=== PATIENT | male | born 1965 | race Caucasian/White ===

== ENCOUNTER 2021-10-20 09:56 | Observation (INO) ==
[2021-10-20 10:55] LABS: Basophils # (auto) 0.02 K/uL (0-0.2); Basophils % (auto) 0.4 %; Eosinophils # (auto) 0.09 K/uL (0-0.5); Eosinophils % (auto) 1.9 %; Hematocrit (blood only) 45.6 % (42-52); Hemoglobin 15.2 g/dL (14.0-18.0); Immature Granulocytes # (auto) 0.01 K/uL (0.00-0.02); Immature Granulocytes % (auto) 0.2 %; Lymphocytes # (auto) 1.39 K/uL (1.2-3.4); Lymphocytes % (auto) 29.5 %; Mean Corpuscular Hgb Conc 33.3 g/dL (32-36); Mean Corpuscular Volume 89.9 fL (80-100); Mean Platelet Volume 10.5 fL (7.4-10.4); Monocytes # (auto) 0.36 K/uL (0.11-0.59); Monocytes % (auto) 7.6 %; Neutrophils # (auto) 2.84 K/uL (1.4-6.5); Neutrophils % (auto) 60.4 %; Platelet Count 194 K/uL (130-400); RDW Standard Deviation 45.9 fL (36.4-46.3); Red Blood Count 5.07 M/uL (4.7-6.1); White Blood Count 4.71 K/uL (4.8-10.8)
--- NOTE | 2021-10-20 11:02 | Emergency Department Note ---
Impression & Plan Syncope, Atrial fibrillation, Hypertension ED Provider Note NAME: DAIJA CASPER AGE: 56 SEX: M : 1965 ARRIVES VIA: Walk-In INFORMANT: Patient ED PROVIDER(S): Seymour Watt DO CHIEF COMPLAINT: syncope HPI: Patient is a 56-year-old male who presents the ER for passing out. He was sitting at the dinner table last night and his vision went blurry. The next thing he knew he was waking up and he was slightly confused for several seconds then knew where he was at. The notes that he passed out sitting up. He had some mild twitching of the head but nowhere else. When he woke up he was a little confused for several seconds but then was appropriate. He did not bite his tongue. Did not lose control of his bowel or bladder. Recently over the past 2 months he has been in A. fib has been following with [email or web address] cardiology. He has been taking his Eliquis. He had no chest pain or shortness of breath preceding the incident or following the incident with exception of chronic shortness of breath for the past 2 months since being in A. fib which is unchanged. ROS: See above HPI for pertinent positives & negatives. A total of 10 systems reviewed and were otherwise negative. PAST MEDICAL HISTORY:See Below PAST SURGICAL HISTORY:See Below FAMILY HISTORY:See Below SOCIAL HISTORY:See Below HOME MEDICATIONS:See Below ALLERGIES:See Below VITALS:See Below PHYSICAL EXAMINATION: GENERAL: Sitting up in bed, alert, well appearing, well nourished, no distress, non-toxic EYE EXAM: normal conjunctiva. PERRL and EOM's intact. OROPHARYNX: no exudate, no erythema, lips, buccal mucosa, and tongue normal and mucous membranes are moist NECK: supple, no nuchal rigidity, no adenopathy, non-tender LUNGS: Clear to auscultation. Normal chest wall mechanics HEART: no murmurs, S1 normal and S2 normal ABDOMEN: abdomen soft, non-tender, normo-active bowel sounds, no masses, no rebound or guarding. BACK: Back is symmetrical on inspection and there is no deformity, no midline tenderness, no CVA tenderness. SKIN: no rashes and no bruising UPPER EXTREMITIES: upper extremities are grossly normal. LOWER EXTREMITIES: No pitting edema. NEURO EXAM: Normal sensorium, cranial nerves II-XII intact, normal speech, no weakness of arms, no weakness of legs. No drift. Finger to nose intact. Gross sensation intact. MEDICAL DECISION MAKING: Patient is a 56-year-old male who presents ER for syncopal episode. IV was established blood work was obtained. Labs show mild leukopenia 4.7 thousand. No significant anemia. INR was unremarkable. BMP with LFTs bilirubin was unremarkable. Troponin was negative with symptoms that occurred greater than 8 hours ago not indicative of ACS. COVID was negative. CT head was negative. Chest x-ray was unremarkable. Patient was monitored closely while in the ER. He was updated bedside. He was discussed with hospitalist for further evaluation. Do not feel this consistent with a seizure. Concern for possible cardiac etiology. Triage Nursing notes reviewed. Limited review of prior medical records performed Vital Signs: reviewed and remarkable for no significant abnormalities Differential diagnosis: Differential diagnosis includes etiologies such as vasovagal event, infection, hypoglycemia, electrolyte abnormalities, cardiac sources, intracerebral event, toxicologic, neurologic, as well as others were entertained. ER treatment provided: See below Diagnostics interpreted by me: ECG: A. fib rate of 67 Normal axis No PVCs QTC 409 Cardiac Monitoring: An order was placed for continuous cardiac monitoring. The monitor shows a rate of 70 with sinus rhythm. Laboratory studies: As stated above and show below. Imaging studies: CT head was negative Portable AP upright 1 view of the chest is unremarkable Consultation(s): Discussed the hospitalist for further evaluation Procedures: none Critical Care: None Past Med/Surg History Social History Smoking Status: Never smoker Hx Alcohol Use: No Hx Substance Use: No Preferred Language: Turkish Communication Ability: Effective [employer] Required: No Beliefs That Will Affect Care: None Current Living Situation: Spouse Other Information That Helps Us Care for You: No Feels Safe at Home: Yes Safety Concerns: Feels Safe At This Time Assistive Devices: Glasses Allergies Allergies Allergy/AdvReac Type Severity Reaction Status Date / Time No Known Allergies Allergy Unverified 10/20/21 11:16 Home Meds Home Medications Medication Instructions Recorded Confirmed amlodipine 10 mg tablet 10 mg PO DAILY 10/20/21 10/20/21 apixaban 5 mg tablet (Eliquis) 5 mg PO BID 10/20/21 10/20/21 metoprolol tartrate 25 mg tablet 25 mg PO BID 10/20/21 10/20/21 Results & Data (ED) Vital Signs Vital Signs - 24 hr 10/20/21 10:00 10/20/21 10:18 10/20/21 10:25 Temperature 36.3 C L Temperature Source Temporal Artery Scan Pulse Rate 95 H 85 Pulse Rate [Right Finger] 84 Pulse Rhythm Irregular Pulse Rhythm [Right Finger] Irregular Pulse Strength [Right Finger] Normal Respiratory Rate 18 14 15 Respiratory Effort / Characteristics Non-Labored Spontaneous Respiratory Depth Normal Blood Pressure 155/94 H Blood Pressure Mean 114 Pulse Oximetry 99 98 98 Oxygen Delivery Method Room Air Room Air Room Air Sepsis Recent Fever Within 48 Hours No Sepsis New/Unexplained Change in Mental Status No Sepsis Action Taken by Nursing No Action Required 10/20/21 12:00 10/20/21 14:00 Temperature Temperature Source Pulse Rate Pulse Rate [Right Finger] 75 89 Pulse Rhythm Pulse Rhythm [Right Finger] Regular Irregular Pulse Strength [Right Finger] Normal Normal Respiratory Rate 18 17 Respiratory Effort / Characteristics Non-Labored Spontaneous Non-Labored Spontaneous Respiratory Depth Normal Normal Blood Pressure Blood Pressure Mean Pulse Oximetry 98 94 Oxygen Delivery Method Room Air Room Air Sepsis Recent Fever Within 48 Hours Sepsis New/Unexplained Change in Mental Status Sepsis Action Taken by Nursing Laboratory Data Result diagrams: 10/20/21 10:29 10/20/21 10:29 Lab Results 10/20/21 10/20/21 10/20/21 Range/Units 10:29 10:29 10:29 WBC 4.71 L (4.8-10.8) K/uL RBC 5.07 (4.7-6.1) M/uL Hgb 15.2 (14.0-18.0) g/dL Hct 45.6 (42-52) % MCV 89.9 (80-100) fL MCH 30.0 (25-34) pg MCHC 33.3 (32-36) g/dL RDW Std Deviation 45.9 (36.4-46.3) fL RDW Coeff of Jacky 14.0 (11.5-14.5) % Plt Count 194 (130-400) K/uL MPV 10.5 H (7.4-10.4) fL Immature Gran % (Auto) 0.2 % Neut % (Auto) 60.4 % Lymph % (Auto) 29.5 % Avery % (Auto) 7.6 % Eos % (Auto) 1.9 % Baso % (Auto) 0.4 % Neut # (Auto) 2.84 (1.4-6.5) K/uL Lymph # (Auto) 1.39 (1.2-3.4) K/uL Avery # (Auto) 0.36 (0.11-0.59) K/uL Eos # (Auto) 0.09 (0-0.5) K/uL Baso # (Auto) 0.02 (0-0.2) K/uL Immature Gran # (Auto) 0.01 (0.00-0.02) K/uL PT 10.6 (9.0-12.0) Seconds INR 1.0 (0.9-1.1) APTT 28.8 (21.0-31.0) Seconds PTT Ratio 1.0 Sodium 139 (136-145) mmol/L Potassium 4.4 (3.5-5.1) mmol/L Chloride 106 (98-107) mmol/L Carbon Dioxide 27 (21-32) mmol/L Anion Gap 6 (3-11) BUN 18 (6-23) mg/dl Creatinine 0.79 (0.6-1.4) mg/dl Est Cr Clr Drug Dosing 143.2 ml/min Est GFR ( Amer) 114.7 ml/min Est GFR (Non-Af Amer) 99.0 ml/min BUN/Creatinine Ratio 22.8 H (10-20) Glucose 98 (70-99(Fasting)) mg/dl Calcium 9.8 (8.5-10.1) mg/dl Total Bilirubin 0.6 (0.2-1.0) mg/dl AST 20 (13-39) U/L ALT 28 (7-52) U/L Alkaline Phosphatase 67 (34-104) U/L Troponin I High Sens 3.2 (0-20) pg/ml Total Protein 7.5 (6.0-8.3) gm/dl Albumin 4.6 (3.4-5.0) gm/dl Globulin 2.9 (2.5-4.0) gm/dl Albumin/Globulin Ratio 1.6 (0.9-2) SARS-CoV-2, RNA, NAAT (NEGATIVE) 10/20/21 Range/Units 13:00 WBC (4.8-10.8) K/uL RBC (4.7-6.1) M/uL Hgb (14.0-18.0) g/dL Hct (42-52) % MCV (80-100) fL MCH (25-34) pg MCHC (32-36) g/dL RDW Std Deviation (36.4-46.3) fL RDW Coeff of Jacky (11.5-14.5) % Plt Count (130-400) K/uL MPV (7.4-10.4) fL Immature Gran % (Auto) % Neut % (Auto) % Lymph % (Auto) % Avery % (Auto) % Eos % (Auto) % Baso % (Auto) % Neut # (Auto) (1.4-6.5) K/uL Lymph # (Auto) (1.2-3.4) K/uL Avery # (Auto) (0.11-0.59) K/uL Eos # (Auto) (0-0.5) K/uL Baso # (Auto) (0-0.2) K/uL Immature Gran # (Auto) (0.00-0.02) K/uL PT (9.0-12.0) Seconds INR (0.9-1.1) APTT (21.0-31.0) Seconds PTT Ratio Sodium (136-145) mmol/L Potassium (3.5-5.1) mmol/L Chloride (98-107) mmol/L Carbon Dioxide (21-32) mmol/L Anion Gap (3-11) BUN (6-23) mg/dl Creatinine (0.6-1.4) mg/dl Est Cr Clr Drug Dosing ml/min Est GFR ( Amer) ml/min Est GFR (Non-Af Amer) ml/min BUN/Creatinine Ratio (10-20) Glucose (70-99(Fasting)) mg/dl Calcium (8.5-10.1) mg/dl Total Bilirubin (0.2-1.0) mg/dl AST (13-39) U/L ALT (7-52) U/L Alkaline Phosphatase (34-104) U/L Troponin I High Sens (0-20) pg/ml Total Protein (6.0-8.3) gm/dl Albumin (3.4-5.0) gm/dl Globulin (2.5-4.0) gm/dl Albumin/Globulin Ratio (0.9-2) SARS-CoV-2, RNA, NAAT NEGATIVE (NEGATIVE) Imaging Data Radiologist's Impression: Chest X-Ray 10/20/21 10:18 XR chest 1V portable CLINICAL HISTORY: Chest Pain. COMPARISON STUDY: No previous studies for comparison. TECHNIQUE: 1 view of the chest FINDINGS: Single frontal view of the chest demonstrates the heart size to be accentuated by decreased inspiratory technique. There is a decreased inspiratory effort with elevation of the hemidiaphragms and crowding of the bronchovascular markings at the lung bases and centrally. The lungs are clear of alveolar opacities. There is no evidence for pleural effusion. There is no evidence for vascular congestion. There is no acute osseous pathology. IMPRESSION: 1. There is a decreased inspiratory effort with otherwise no acute chest disease. ACT 112: Negative or not required by law. Electronically signed by: Kam Chaidez M.D. 10/20/2021 11:[address] 10/20/21 13:21 CT head/brain wo con CLINICAL HISTORY: dizzy Technique: Contiguous axial CT images of the head were acquired from the base of the skull to the vertex without intravenous contrast administration. Images were viewed in brain, subdural and bone windows. Automated dose lowering techniques and/or adjustment according to patient size were utilized for this exam. Comparison: None available at the time of this dictation. Findings: The ventricles, basal cisterns, and cerebral sulci are normal. There is no acute intracranial hemorrhage or evidence of acute territorial infarction. Neither mass effect, shift of the midline structures, nor abnormal extra-axial fluid collections are shown. Imaged portions of the paranasal sinuses and mastoid air cells are clear. The orbits appear normal. There are no acute fractures of the calvaria or scalp swelling. Impression: No acute intracranial hemorrhage, no evidence of acute territorial infarction or other acute intracranial disease process. ACT 112: Negative or not required by law. Electronically signed by: Drayl aZmbrano M.D. 10/20/2021 2:05 PM Discharge Plan Visit Data Chief Complaint: Seizure Stated Complaint: SEIZURE LST NIGHT, CARDIAC SX ED Provider: Seymour Watt Discharge Problem: Syncope, Atrial fibrillation, Hypertension Discharge Instructions Interventions: ED Discharge Assessment Last Done: 10/20/21 16:03
[2021-10-20 11:05] LABS: Partial Thromboplastin Time 28.8 Seconds (21.0-31.0); Prothrombin Time 10.6 Seconds (9.0-12.0)
[2021-10-20 11:07] LABS: Albumin Globulin Ratio 1.6 (0.9-2); Albumin Level 4.6 gm/dl (3.4-5.0); BUN Creatinine Ratio 22.8 (10-20); Bilirubin,Total 0.6 mg/dl (0.2-1.0); Calcium 9.8 mg/dl (8.5-10.1); Creatinine Clr Calc Pharmacy 143.2 ml/min; Est GFR (African American) 114.7 ml/min; Globulin 2.9 gm/dl (2.5-4.0); Potassium 4.4 mmol/L (3.5-5.1); Total Protein 7.5 gm/dl (6.0-8.3)
[2021-10-20 11:11] LABS: Troponin I High Sensitivity 3.2 pg/ml (0-20)
--- NOTE | 2021-10-20 11:15 | XRay Report ---
XR chest 1V portable CLINICAL HISTORY: Chest Pain. COMPARISON STUDY: No previous studies for comparison. TECHNIQUE: 1 view of the chest FINDINGS: Single frontal view of the chest demonstrates the heart size to be accentuated by decreased inspirato ry technique. There is a decreased inspiratory effort with elevation of the hemidiaphragms and crowdi ng of the bronchovascular markings at the lung bases and centrally. The lungs are clear of alveolar o pacities. There is no evidence for pleural effusion. There is no evidence for vascular congestion. Th ere is no acute osseous pathology. IMPRESSION: 1. There is a decreased inspiratory effort with otherwise no acute chest disease. ACT 112: Negative or not required by law. Electronically signed by: Kam Chaidez M.D. 10/20/2021 11:14 AM
--- NOTE | 2021-10-20 14:07 | CT Scan Report ---
CT head/brain wo con CLINICAL HISTORY: dizzy Technique: Contiguous axial CT images of the head were acquired from the base of the skull to the ashish savage without intravenous contrast administration. Images were viewed in brain, subdural and bone [facility]. Automated dose lowering techniques and/or adjustment according to patient size were utilized for this exam. Comparison: None available at the time of this dictation. Findings: The ventricles, basal cisterns, and cerebral sulci are normal. There is no acute intracranial hemorrh age or evidence of acute territorial infarction. Neither mass effect, shift of the midline structures , nor abnormal extra-axial fluid collections are shown. Imaged portions of the paranasal sinuses and mastoid air cells are clear. The orbits appear normal. There are no acute fractures of the calvaria or scalp swelling. Impression: No acute intracranial hemorrhage, no evidence of acute territorial infarction or other acute intracra nial disease process. ACT 112: Negative or not required by law. Electronically signed by: Daryl Zambrano M.D. 10/20/2021 2:05 PM
--- NOTE | 2021-10-20 15:15 | History & Physical Report ---
Date of Service October 20, 2021 Assessment & Plan (1) Syncope: (2) Atrial fibrillation: (3) Hypertension: (4) Peripheral vascular disease: Plan: 2 episodes of near syncope and a syncopal episode. Likely related to dysrhythmia based on patient's history. CT head did not show any acute abnormalities. Chest x-ray did not show any acute disease Admit observation on telemetry. Patient reports Cardiology scheduled cardioversion in the coming weeks Reviewed recent outpatient echocardiogram done on 08/29/2021 which showed normal LV size with mild concentric LVH, normal LV systolic function with EF of 60%, poorly visualized valvular structures without significant stenosis or regurgitation. We appreciate cardiology evaluation. We will keep n.p.o. past midnight in case cardiology decides to do cardioversion while inpatient. Continue home Eliquis, amlodipine and metoprolol. History of Present Illness Chief Complaint: Loss of consciousness Primary Care Provider: Maxwell Villar MD Old man with history of PAD, hypertension, atrial fibrillation on Eliquis who presented after brief episode of loss of consciousness that happened this morning. Patient reports that on Sunday he had an episode where he felt like he was about to pass out on Sunday associated with tunnel vision. He was sitting at the time. Had a similar episode yesterday while standing and then had a brief episode of loss of consciousness that was witnessed by that lasted about a minute. Patient was sitting cutting chicken at the time and had dropped the knife. His thought it was his cramps last usually has cramps in the arms but then she noticed his troponin very was a conscious called out to him. Patient reports losing consciousness briefly and then coming to with calling out to him. Reports some subtle headache since. Patient reports intermittent palpitations since diagnosis with A. fib. Also has chronic dyspnea on exertion. Denied any chest pain, nausea, vomiting Reported an episode of abdominal pain and loose stool after the episode yesterday. 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 No family hx reported Allergies Allergy/AdvReac Type Severity Reaction Status Date / Time No Known Allergies Allergy Unverified 10/20/21 11:16 Home Medications Medication Instructions Recorded Confirmed Type amlodipine 10 mg tablet 10 mg PO DAILY 10/20/21 10/20/21 History apixaban 5 mg tablet (Eliquis) 5 mg PO BID 10/20/21 10/20/21 History metoprolol tartrate 25 mg tablet 25 mg PO BID 10/20/21 10/20/21 History Past Med/Surg History Social History Smoking Status: Never smoker Hx Alcohol Use: No Hx Substance Use: No Preferred Language: Romanian Communication Ability: Effective [employer] Aide Required: No Beliefs That Will Affect Care: None Current Living Situation: Spouse Other Information That Helps Us Care for You: No Feels Safe at Home: Yes Safety Concerns: Feels Safe At This Time Assistive Devices: Glasses Review of Systems Constitutional: no fever, no body aches, no fatigue and no anorexia Eyes: + tunnel vision (during 2 episodes) Ear, Nose, Mouth, Throat: + dizziness; no ear discharge and no hearing loss Respiratory: + dyspnea on exertion; no cough and no chest congestion Cardiovascular: + dyspnea on exertion, + palpitations and + syncope; no chest pain, no chest pain at rest and no orthopnea Gastrointestinal: no abdominal pain (None today), no nausea and no vomiting Genitourinary: no dysuria, no difficulty urinating or no urinary frequency Neurologic: + headache(s); no unsteadiness and no generalized weakness Psychiatric: no depression and no anxiety Physical Exam Constitutional: + well hydrated and + obese; no acute distress Eyes: PERRL, conjunctivae normal, anicteric sclerae ENMT: external ear and nose normal, oropharynx normal Respiratory: normal respiratory effort, lungs clear to auscultation Cardiovascular: Rate/Rhythm: + irregularly irregular S1 S2 Gastrointestinal (Abdomen): normal bowel sounds, soft, nontender, no hepatosplenomegaly Musculoskeletal: +trace edema, 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 Neurologic: PERRL, EOMI, accommodation nl, no face palsy, no dysarthria Psychiatric: A+Ox3, euthymic affect Results & Data Results & Data ([facility]) Vital Signs (Past 12 Hours) Vital Signs Temp Pulse Pulse Resp BP Pulse Ox 10/20/21 14:00 89 17 94 10/20/21 12:00 75 18 98 10/20/21 10:25 84 15 98 10/20/21 10:18 85 14 98 06/16/22 10:00 36.3 C L 95 H 18 155/94 H 99 Laboratory Results Abnormal lab results 10/20/21 10/20/21 Range/Units 10:29 10:29 WBC 4.71 L (4.8-10.8) K/uL MPV 10.5 H (7.4-10.4) fL BUN/Creatinine Ratio 22.8 H (10-20) Diagnostic Findings XR chest 1V portable CLINICAL HISTORY: Chest Pain. COMPARISON STUDY: No previous studies for comparison. TECHNIQUE: 1 view of the chest FINDINGS: Single frontal view of the chest demonstrates the heart size to be accentuated by decreased inspiratory technique. There is a decreased inspiratory effort with elevation of the hemidiaphragms and crowding of the bronchovascular markings at the lung bases and centrally. The lungs are clear of alveolar opacities. There is no evidence for pleural effusion. There is no evidence for vascular congestion. There is no acute osseous pathology. IMPRESSION: 1. There is a decreased inspiratory effort with otherwise no acute chest disease. CT head/brain wo con CLINICAL HISTORY: dizzy Technique: Contiguous axial CT images of the head were acquired from the base of the skull to the vertex without intravenous contrast administration. Images were viewed in brain, subdural and bone windows. Automated dose lowering techniques and/or adjustment according to patient size were utilized for this exam. Comparison: None available at the time of this dictation. Findings: The ventricles, basal cisterns, and cerebral sulci are normal. There is no acute intracranial hemorrhage or evidence of acute territorial infarction. Neither mass effect, shift of the midline structures, nor abnormal extra-axial fluid collections are shown. Imaged portions of the paranasal sinuses and mastoid air cells are clear. The orbits appear normal. There are no acute fractures of the calvaria or scalp swelling. Impression: No acute intracranial hemorrhage, no evidence of acute territorial infarction or other acute intracranial disease process.
--- NOTE | 2021-10-20 16:59 | Cardiology Consultation ---
Date of Consultation October 20, 2021 Assessment & Plan (1) Atrial fibrillation: (2) Syncope: (3) Hypertension: Patient is a 56-year-old male with paroxysmal atrial fibrillation recently diagnosed now fully anticoagulated. He is scheduled for synchronized electrical cardioversion in approximately 2 weeks. He presents now with presyncopal event, possible bradycardia or tachyarrhythmia No other acute findings on test Plan: Tentative synchronized electrical cardioversion in a.m. Hold metoprolol this p.m., maintain telemetry. Continue anticoagulation with Eliquis N.p.o. after midnight Patient will need to complete sleep medicine evaluation. Hypertension to be addressed after above consider adding ARB/spironolactone to his regimen reducing amlodipine given chronic stasis edema History of Present Illness Reason for Consultation: Syncope, paroxysmal/persistent atrial fibrillation Requesting Physician: Jennifer Sims MD Attending Physician: Jennifer Sims MD History of Present Illness Patient is a 56-year-old male with history is notable for 1. Paroxysmal atrial fibrillation newly observed August 2021 2. Hypertension 3. Peripheral artery disease Patient presents this admission after 2-3 episodes of home of presyncope followed by a an episode of transient syncope while sitting at the dinner table. All episodes occurred while sitting quietly or at rest. No exertional complaints chest pain shortness of breath tachypalpitations syncope or near syncope prior. No fevers chills or unexplained infections. No bleeding difficulties. Patient has been taking medications as prescribed no lapse in anticoagulation recently. Appetite and weight have been stable. No prior history is of difficulties with anesthesia. No difficulty swallowing Patient scheduled for synchronized electrical cardioversion early next month. Current EKG atrial fibrillation at 67 bpm with intermittent ventricular slowing. 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 Surgical History (Updated 10/20/21 @ 18:02 by Bry Enriquez MD) H/O arthroscopic knee surgery H/O varicose vein ligation and stripping History of appendectomy Social History Smoking Status: Never smoker Hx Alcohol Use: No Hx Substance Use: No Preferred Language: Gambian Communication Ability: Effective Film Printer Required: No Beliefs That Will Affect Care: None Current Living Situation: Spouse Other Information That Helps Us Care for You: No Feels Safe at Home: Yes Safety Concerns: Feels Safe At This Time Assistive Devices: Glasses Review of Systems Review of Systems: All systems reviewed & are unremarkable except as noted in HPI & below Physical Exam Constitutional: WD/WN, vitals as above no acute distress Eyes: PERRL, conjunctivae normal, anicteric sclerae ENMT: external ear and nose normal, oropharynx normal Neck: trachea midline, no thyromegaly Respiratory: normal respiratory effort, lungs clear to auscultation Cardiovascular: Rate/Rhythm: + irregularly irregular Heart Sounds: normal S1 and normal S2; no gallop and no murmur Palpation: normal PMI Vessels: normal carotid upstroke and radial pulses present; no JVD and no carotid bruit Extremities: + edema (1+) and + varicosities (Chronic stasis changes) Gastrointestinal (Abdomen): normal bowel sounds, soft, nontender, no hepatosplenomegaly Musculoskeletal: no cyanosis or clubbing, extremities motor strength 5/5 Skin: no rashes, warm and dry Neurologic: PERRL, EOMI, accommodation nl, no face palsy, no dysarthria Psychiatric: A+Ox3, euthymic affect Results & Data ([facility]) Vital Signs (Past 12 Hours) Vital Signs Temp Pulse Pulse Resp BP BP Pulse Ox 10/20/21 16:24 98 H 10/20/21 16:00 76 17 148/89 H 96 10/20/21 14:00 89 17 94 10/20/21 12:00 75 18 98 10/20/21 10:25 84 15 98 10/20/21 10:18 85 14 98 10/20/21 10:00 36.3 C L 95 H 18 155/94 H 99 Laboratory Results Laboratory Results - last 24 hr 10/20/21 10/20/21 10/20/21 10:29 10:29 10:29 WBC 4.71 L RBC 5.07 Hgb 15.2 Hct 45.6 MCV 89.9 MCH 30.0 MCHC 33.3 RDW Std Deviation 45.9 RDW Coeff of Jacky 14.0 Plt Count 194 MPV 10.5 H Immature Gran % (Auto) 0.2 Neut % (Auto) 60.4 Lymph % (Auto) 29.5 [place] % (Auto) 7.6 Eos % (Auto) 1.9 Baso % (Auto) 0.4 Neut # (Auto) 2.84 Lymph # (Auto) 1.39 [place] # (Auto) 0.36 Eos # (Auto) 0.09 Baso # (Auto) 0.02 Immature Gran # (Auto) 0.01 PT 10.6 INR 1.0 APTT 28.8 PTT Ratio 1.0 Sodium 139 Potassium 4.4 Chloride 106 Carbon Dioxide 27 Anion Gap 6 BUN 18 Creatinine 0.79 Est Cr Clr Drug Dosing 143.2 Est GFR ( Amer) 114.7 Est GFR (Non-Af Amer) 99.0 BUN/Creatinine Ratio 22.8 H Glucose 98 Calcium 9.8 Total Bilirubin 0.6 AST 20 ALT 28 Alkaline Phosphatase 67 Troponin I High Sens 3.2 Total Protein 7.5 Albumin 4.6 Globulin 2.9 Albumin/Globulin Ratio 1.6 SARS-CoV-2, RNA, NAAT 10/20/21 13:00 WBC RBC Hgb Hct MCV MCH MCHC RDW Std Deviation RDW Coeff of Jacky Plt Count MPV Immature Gran % (Auto) Neut % (Auto) Lymph % (Auto) [place] % (Auto) Eos % (Auto) Baso % (Auto) Neut # (Auto) Lymph # (Auto) [place] # (Auto) Eos # (Auto) Baso # (Auto) Immature Gran # (Auto) PT INR APTT PTT Ratio Sodium Potassium Chloride Carbon Dioxide Anion Gap BUN Creatinine Est Cr Clr Drug Dosing Est GFR ( Amer) Est GFR (Non-Af Amer) BUN/Creatinine Ratio Glucose Calcium Total Bilirubin AST ALT Alkaline Phosphatase Troponin I High Sens Total Protein Albumin Globulin Albumin/Globulin Ratio SARS-CoV-2, RNA, NAAT NEGATIVE Diagnostic Findings Echocardiogram 08/29/2021 Normal LV chamber size with mild concentric LVH. Normal LV systolic function without regional wall motion abnormality. Calculated LV ejection Fraction = 60% (bi-plane method of discs). Poorly visualized valvular structures without significant stenosis or regurgitation by Doppler. (1) Atrial fibrillation Atrial fibrillation type: unspecified Qualified Code(s): I48.91 - Unspecified atrial fibrillation (2) Syncope Syncope type: unspecified Qualified Code(s): R55 - Syncope and collapse (3) Hypertension Hypertension type: unspecified Qualified Code(s): I10 - Essential (primary) hypertension
[2021-10-20] MEDS ORDERED: ACETAMINOPHEN 325 MG TAB PO PRN (17:33)
--- NOTE | 2021-10-20 18:23 | Electrocardiogram Report ---
Test Reason : Blood Pressure : / mmHG Vent. Rate : 067 BPM Atrial Rate : 277 BPM P-R Int : 000 ms QRS Dur : 104 ms QT Int : 388 ms P-R-T Axes : 000 002 021 degrees QTc Int : 409 ms Atrial fibrillation Abnormal ECG No previous ECGs available Confirmed by Shamar Shane ([id number]) on 10/20/2021 6:23:16 PM Referred By: Confirmed By:Julio Shane
[2021-10-20] MEDS: APIXABAN 5 MG TABLET PO SCH (20:26)
[2021-10-20] MEDS ORDERED: METOPROLOL TARTRATE 25 MG TAB PO SCH (21:00)
[2021-10-21 06:35] LABS: Hematocrit (blood only) 44.5 % (42-52); Mean Corpuscular Hemoglobin 30.6 pg (25-34); Mean Corpuscular Hgb Conc 33.7 g/dL (32-36); Mean Corpuscular Volume 90.8 fL (80-100); Platelet Count 185 K/uL (130-400); RDW Coefficient of Variation 13.9 % (11.5-14.5); RDW Standard Deviation 46.5 fL (36.4-46.3); White Blood Count 4.34 K/uL (4.8-10.8)
--- NOTE | 2021-10-21 06:50 | Anesthesiology Consultation ---
Date of Service October 21, 2021 Assessment & Plan (1) Encounter for pre-operative examination: Chart Review Chart Review: Acceptable Risk for Surgery and Patient NOT seen in Pre Admission Testing Consults Requested none History Height/Weight Height: 6 ft Weight: 132 kg Allergies Allergy/AdvReac Type Severity Reaction Status Date / Time No Known Allergies Allergy Unverified 10/20/21 11:16 Medications Home Medications Medication Instructions Recorded Confirmed Last Taken amlodipine 10 mg tablet 10 mg PO DAILY 10/20/21 10/20/21 10/20/21 apixaban 5 mg tablet (Eliquis) 5 mg PO BID 10/20/21 10/20/21 10/20/21 metoprolol tartrate 25 mg tablet 25 mg PO BID 10/20/21 10/20/21 10/20/21 Active Medications Generic Name Dose Route Start Last Admin Trade Name Freq PRN Reason Stop Dose Admin Apixaban 5 mg 10/20/21 21:00 10/20/21 20:26 Apixaban 5 Mg Tablet PO 11/19/21 20:59 5 mg BID SIMONA Administration Past Medical History Medical History (Updated 10/21/21 @ 06:50 by Jesse Richey MD) Atrial fibrillation 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 Hypertension Peripheral vascular disease Syncope Exercise / Class Metabolic Activity II 4-5 Yardwork/Stairs/Walk up hill Past Surgical History Surgical History H/O arthroscopic knee surgery H/O varicose vein ligation and stripping History of appendectomy Social History Smoking Status: Never smoker Hx Alcohol Use: No Hx Substance Use: No substance use type: does not use Physical Exam Vital Signs Last Vital Signs Temp 36.4 C L 10/20/21 23:54 Pulse 82 10/20/21 23:58 Resp 18 10/20/21 23:54 BP 128/86 10/20/21 23:54 Pulse Ox 97 10/20/21 23:54 Testing Laboratory Results 10/21/21 06:04 PT 10.6 Seconds (9.0-12.0) 10/20/21 10:29 INR 1.0 (0.9-1.1) 10/20/21 10:29 APTT 28.8 Seconds (21.0-31.0) 10/20/21 10:29 10/20/21 21:01 POC Glucose 79 Electrocardiogram Date: 10/20/21 Findings: + AFIB @
[2021-10-21 07:11] LABS: BUN Creatinine Ratio 17.7 (10-20); Calcium 9.2 mg/dl (8.5-10.1); Creatinine Clr Calc Pharmacy 143.2 ml/min; Est GFR (African American) 114.7 ml/min; Magnesium 2.1 mg/dl (1.7-2.4); Potassium 4.3 mmol/L (3.5-5.1)
[2021-10-21] MEDS: APIXABAN 5 MG TABLET PO SCH (07:56)
[2021-10-21] MEDS ORDERED: amLODIPine BESYLATE 5 MG TAB PO SCH (09:00)
--- NOTE | 2021-10-21 09:45 | Cardiology Progress Note ---
Date of Service October 21, 2021 Assessment & Plan (1) Atrial fibrillation: (2) Syncope: (3) Hypertension: Plan: Patient is a 56-year-old male with paroxysmal atrial fibrillation recently diagnosed now fully anticoagulated. He is scheduled for synchronized electrical cardioversion in approximately 2 weeks. He presents now with presyncopal event, possible bradycardia or tachyarrhythmia No other acute findings on test Plan: Synchronized electrical cardioversion later today when anesthesia available Hold metoprolol , maintain telemetry. Continue anticoagulation with Eliquis N.p.o. Patient will need to complete sleep medicine evaluation. Hypertension to be addressed after above consider adding ARB/spironolactone to his regimen reducing amlodipine given chronic stasis edema Admission and Anticipated Discharge Date Admission Date: October 20, 2021 Subjective Patient was seen and examined, chart, medications, telemetry reviewed. No dizziness or lightheadedness overnight no arrhythmias on telemetry. Heart rate and blood pressure up slightly after holding metoprolol. No chest pains or shortness of breath. Physical Exam Constitutional: WD/WN, vitals as above no acute distress Eyes: PERRL, conjunctivae normal, anicteric sclerae ENMT: external ear and nose normal, oropharynx normal Neck: trachea midline, no thyromegaly Respiratory: normal respiratory effort, lungs clear to auscultation Cardiovascular: Rate/Rhythm: + irregularly irregular Heart Sounds: normal S1 and normal S2; no gallop and no murmur Palpation: normal PMI Vessels: normal carotid upstroke and radial pulses present; no JVD and no carotid bruit Extremities: + edema (1+) and + varicosities (Chronic stasis changes) Gastrointestinal (Abdomen): normal bowel sounds, soft, nontender, no hepatosplenomegaly Musculoskeletal: no cyanosis or clubbing, extremities motor strength 5/5 Skin: no rashes, warm and dry Neurologic: PERRL, EOMI, accommodation nl, no face palsy, no dysarthria Psychiatric: A+Ox3, euthymic affect Results & Data ([facility]) Vital Signs (Past 12 Hours) Vital Signs Temp Pulse Pulse Resp BP Pulse Ox 10/21/21 07:43 36.6 C 76 16 131/88 96 10/20/21 23:58 82 10/20/21 23:54 36.4 C L 83 18 128/86 97 (1) Atrial fibrillation Atrial fibrillation type: unspecified Qualified Code(s): I48.91 - Unspecified atrial fibrillation (2) Syncope Syncope type: unspecified Qualified Code(s): R55 - Syncope and collapse (3) Hypertension Hypertension type: unspecified Qualified Code(s): I10 - Essential (primary) hypertension
[2021-10-21] MEDS ORDERED: ATROPINE SULFATE 0.1 MG/ML 10ML SYR IV ONE (11:29)
[2021-10-21] MEDS ORDERED: PROPOFOL IV EMULSION 10 MG/ML 20 ML VIAL IV ONE (12:02)
[2021-10-21] MEDS ORDERED: ATROPINE SULFATE 0.1 MG/ML 10ML SYR IV PRN (12:14)
[2021-10-21] MEDS ORDERED: ePHEDrine sulfate 50 MG/ML AMP IV PRN (12:14)
--- NOTE | 2021-10-21 12:29 | Cardioversion ---
Date of Service October 21, 2021 Electrical Cardioversion Rpt Electrical Cardioversion Report Patient was seen and examined. Procedure and risks of synchronized electrical cardioversion explained in detail, informed consent obtained. Formal TIMEOUT performed Sedation performed via anesthesia consult. Single synchronized 200J biphasic shock performed with successful conversion to sinus rhythm EKG Sinus rhythm at 84 bpm with single PVC Plan: Medical therapies
[2021-10-21] MEDS ORDERED: METOPROLOL TARTRATE 25 MG TAB PO SCH (12:30)
--- NOTE | 2021-10-21 12:33 | Anesthesiology Progress Note ---
Date of Service October 21, 2021 Anesthesia Post Procedure Vital Signs Vital Signs: Temp Pulse Pulse Resp BP BP Pulse Ox 10/21/21 12:28 79 16 137/77 96 10/21/21 12:22 80 16 134/76 97 10/21/21 11:50 104 H 20 153/132 H 99 10/21/21 09:47 90 10/21/21 07:43 36.6 C 76 16 131/88 96 10/20/21 23:58 82 10/20/21 23:54 36.4 C L 83 18 128/86 97 10/20/21 19:57 36.6 C 85 16 129/84 97 10/20/21 16:45 36.3 C L 83 16 155/95 H 97 10/20/21 16:24 98 H 10/20/21 16:00 76 17 148/89 H 96 10/20/21 14:00 89 17 94 Transfer of Care Handoff Completed per policy Notes Mental Status: alert / awake / arousable and participated in evaluation Patient Amnestic to Procedure: Yes Nausea / Vomiting: adequately controlled Pain: adequately controlled Airway Patency, RR, SpO2: stable & adequate BP & HR: stable & adequate Hydration State: stable & adequate Anesthetic Complications: no major complications apparent and Pt Satisfied with anesthetic care
--- NOTE | 2021-10-21 13:53 | Hospitalist Progress Note ---
Date of Service October 21, 2021 Assessment & Plan (1) Syncope: (2) Atrial fibrillation: (3) Hypertension: (4) Peripheral vascular disease: Plan: Syncope Likely secondary to atrial fibrillation --CT head:No acute intracranial hemorrhage, no evidence of acute territorial infarction or other acute intracranial disease process. --Chest x-ray:There is a decreased inspiratory effort with otherwise no acute chest disease. --ECHO on 08/29/2021 which showed normal LV size with mild concentric LVH, normal LV systolic function with EF of 60%, poorly visualized valvular structures without significant stenosis or regurgitation. Negative Lyme Screen S/P Successful synchronized cardioversion Appreciate cardiology input Continue Eliquis on for anticoagulation Continue metoprolol 25 mg twice a day HTN Amlodipine decreased to 5 mg daily Continue metoprolol Started on losartan 25 mg daily DVT Px: Eliquis Code Status Full Code Disposition Home Admission and Anticipated Discharge Date Admission Date: October 20, 2021 Subjective Patient is seen and examined at bedside Had successful cardioversion earlier today States feeling well post cardioversion Denies any chest pain, shortness of breath, dizziness, nausea, abdominal pain Discussed with cardiology today Offers no other complaints Review of Systems Review of Systems: All systems reviewed & are unremarkable except as noted in Subjective Physical Exam Physical Exam: Physical Exam: Vitals signs as noted above General Appearance:Obese, no apparent distress Head: normocephalic, Atraumatic Eyes: normal inspection, EOMI Neck: supple, Trachea midline Respiratory/Chest: Normal breath sounds, CTA, No accessory muscle use Cardiovascular: S1, S2, No murmur Abdomen/GI:Soft, Non tender, Bowel sounds present Extremities/Musculoskeletal:normal inspection, no edema Neurologic/Psych:AAOX3, grossly no focal neurological deficits Skin: normal color, warm Results & Data Results & Data ([facility]) Vital Signs (Past 12 Hours) Vital Signs Temp Pulse Pulse Resp BP BP Pulse Ox 10/21/21 13:10 86 10/21/21 12:59 36.5 C 82 19 151/86 H 97 10/21/21 12:42 78 16 149/80 H 96 10/21/21 12:28 79 16 137/77 96 10/21/21 12:22 80 16 134/76 97 10/21/21 11:50 104 H 20 153/132 H 99 10/21/21 09:47 90 10/21/21 07:43 36.6 C 76 16 131/88 96 Laboratory Results Short CBC 10/21/21 Range/Units 06:04 WBC 4.34 L (4.8-10.8) K/uL Hgb 15.0 (14.0-18.0) g/dL Hct 44.5 (42-52) % Plt Count 185 (130-400) K/uL BMP 10/21/21 06:04 Sodium 138 Potassium 4.3 Chloride 106 Carbon Dioxide 27 BUN 14 Creatinine 0.79 Glucose 97 Calcium 9.2 (1) Syncope Syncope type: unspecified Qualified Code(s): R55 - Syncope and collapse (2) Atrial fibrillation Atrial fibrillation type: unspecified Qualified Code(s): I48.91 - Unspecified atrial fibrillation (3) Hypertension Hypertension type: unspecified Qualified Code(s): I10 - Essential (primary) hypertension
--- NOTE | 2021-10-21 14:22 | Discharge Summary ---
Date of Service October 21, 2021 Admission HPI Per Admitting Provider Old man with history of PAD, hypertension, atrial fibrillation on qu who presented after brief episode of loss of consciousness that happened this morning. Patient reports that on Sunday he had an episode where he felt like he was about to pass out on Sunday associated with tunnel vision. He was sitting at the time. Had a similar episode yesterday while standing and then had a brief episode of loss of consciousness that was witnessed by that lasted about a minute. Patient was sitting cutting chicken at the time and had dropped the knife. His thought it was his cramps last usually has cramps in the arms but then she noticed his troponin very was a conscious called out to him. Patient reports losing consciousness briefly and then coming to with calling out to him. Reports some subtle headache since. Patient reports intermittent palpitations since diagnosis with AAdrienne albarran. Also has chronic dyspnea on exertion. Denied any chest pain, nausea, vomiting Reported an episode of abdominal pain and loose stool after the episode yesterday. 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 No family hx reported Admission Exam Per Admitting Provider Physical Exam Constitutional: + well hydrated and + obese; no acute di stress Eyes: PERRL, conjunctivae normal, anicteric sclerae ENMT: external ear and nose normal, oropharynx normal Respiratory: normal respiratory effort, lungs clear to auscultation Cardiovascular: Rate/Rhythm: + irregularly irregular S1 S2 Gastrointestinal (Abdomen): normal bowel sounds, soft, nontender, no hepatosplenomegaly Musculoskeletal: +trace edema, amputated 2nd and 3rd dist al toe phalanges Neurologic: PERRL, EOMI, accommodation nl, no face palsy, no dysarthria Psychiatric: A+Ox3, euthymic affect Principal Diagnosis Syncope Atrial fibrillation Discharge Data Allergies Allergy/AdvReac Type Severity Reaction Status Date / Time No Known Allergies Allergy Unverified 10/20/21 11:16 Consultations 10/20/21 13:13 ED Decision to Admit Stat 10/20/21 15:19 Consult Cardiology Routine 10/21/21 07:15 Consult Anesthesiology Routine Procedures Performed Operation Date: 10/21/21 12:00 Actual Procedures p Cardioversion - Bry Enriquez MD Ordered Studies 10/20/21 13:21 CT head/brain wo con Stat Hospital Course (1) Syncope: (2) Atrial fibrillation: (3) Hypertension: (4) Peripheral vascular disease: Syncope Likely secondary to atrial fibrillation --CT head:No acute intracranial hemorrhage, no evidence of acute territorial infarction or other acute intracranial disease process. --Chest x-ray:There is a decreased inspiratory effort with otherwise no acute chest disease. --ECHO on 08/29/2021 which showed normal LV size with mild concentric LVH, normal LV systolic function with EF of 60%, poorly visualized valvular structures without significant stenosis or regurgitation. Negative Lyme Screen S/P Successful synchronized cardioversion Appreciate cardiology input Continue Eliquis on for anticoagulation Continue metoprolol 25 mg twice a day HTN Amlodipine decreased to 5 mg daily Continue metoprolol Started on losartan 25 mg daily DVT Px: Eliquis Code Status Full Code Disposition Home Total Time Total Time Spent Total Time Spent (In Minutes): 38 minutes Discharge Plan Discharge Items Patient Disposition: Home - Self-Care Reason For Visit: SYNCOPE Discharge Diagnosis: Syncope Atrial fibrillation Activity: Per Instructions section Exercise/Sports: Gradually increase as tolerated Non-emergency contact: Primary Care Provider and Real Estate Accountant Call non-emergency contact if: you have any medication questions, your symptoms worsen, your pain is concerning for you and you have a fever Follow-up/Referrals: Maxwell Villar MD [Primary Care Provider] - Diet: Heart Healthy Addtl Attending Provider Instructions: Follow-up with your primary care physician in 1 week. Please call for appointment Follow-up with your under water assistant Dr. Hernandez as recommended Seek immediate medical attention if your symptoms reoccur or worsen Please take all medications as instructed on discharge list below. Please call if you have any questions or problems. You can reach a [facility] hospitalist on duty at [facility] 24 hours a day by calling [phone] Pending Studies at Discharge: No Stand-Alone Forms: My [facility] [employer], Smoking Cessation Medications and DC Order Prescriptions: New amlodipine [Norvasc] 5 mg Tablet 5 mg PO DAILY Qty: 30 RF: 1 losartan 25 mg Tablet 25 mg PO QAM Qty: 30 RF: 1 Continued metoprolol tartrate 25 mg tablet 25 mg PO BID RF: 0 Eliquis 5 mg tablet 5 mg PO BID RF: 0 Discontinued amlodipine 10 mg tablet 10 mg PO DAILY RF: 0 Discharge Orders: Discharge Order (Routine); Ordered 10/21/21 Ordered By: Eder Martínez Admission Data Admit Date/Time: 10/20/21 15:19 Attending Provider: Eder Martínez Admit Provider: Jennifer Sims I. Primary Care Provider: Maxwell Villar Other Providers: Bry Enriquez ; Jennifer Sims I. ; Celine Mc ; Padma Goins ; Sherry Julio ; Paige Clark ; Richard Perry ; Fabien Spivey ; Martin Jason ; Vasu Black ; Annemarie Black ; Gomez Nails ; Nayla Starkey ; Sabas Malcolm ; Jered Alcocer ; Michel Mata ; Slava [place] ; Val Grewal ; Sonu Fong ; Kaylee Boyd ; Inga Fong ; Neville Almendarez ; Briseyda Alejandro ; Jasson Patel. ; Latisha Brunson ; Lydia Escalona ; Briseyda Meneses ; Diana Nogueira ; Ronal Ross ; Malu Sapp ; Sangeetha Dave ; Zamzam Hart ; Diane Aguilar ; Denny Aguilar V ; Jesse Richey ; Padma Carr ; Jaswant Burger ; Beverly Mena ; Graciela Steward ; Denny Sheridan ; Silverio Grewal ; Daryl Christopher ; Deena De La Rosa ; Shaunna Pitts ; Denny London ; Zamzam Mason ; Sonny Caruso ; Camacho Norwood ; Marisol Stephens ; Jamarcus Last ; Nik Barnett ; Justice Majano ; Duy Garcia ; Jamarcus Saleh ; Richard Christian Jr ; Brittany Puga ; Lianna Antunez ; Nicky Armenta ; Ronal Victor ; Paige Stern ; Vasu Kathleen ; Dinesh Vang I. ; Marlene Deshpande
--- NOTE | 2021-10-21 14:43 | Electrocardiogram Report ---
Test Reason : Blood Pressure : / mmHG Vent. Rate : 084 BPM Atrial Rate : 084 BPM P-R Int : 194 ms QRS Dur : 104 ms QT Int : 380 ms P-R-T Axes : 010 062 024 degrees QTc Int : 449 ms Poor data quality, interpretation may be adversely affected Sinus rhythm with Premature atrial complexes with Aberrant conduction Otherwise normal ECG When compared with ECG of 20-OCT-2021 10:20, Sinus rhythm has replaced Atrial fibrillation Questionable change in QRS axis T wave amplitude has decreased in Lateral leads Confirmed by Shamar Shane ([id number]) on 10/21/2021 2:42:59 PM Referred By: Jero Hernandez Confirmed By:Julio Shane
[2021-10-22] MEDS ORDERED: amLODIPine BESYLATE 5 MG TAB PO SCH (09:00)
[2021-10-22] MEDS ORDERED: LOSARTAN POTASSIUM 25 MG TAB PO SCH (09:00)
== END 2021-10-21 14:56 | disposition home or self-care (01) ==
LOC: ED 09:56 → 2N 09:56 → SUATTDRO 15:19 → 2N 16:03

== ENCOUNTER 2021-10-24 19:56 | Inpatient (IN) ==
--- NOTE | 2021-10-24 20:29 | XRay Report ---
XR chest 1V portable CLINICAL HISTORY: weakness TECHNIQUE: Single frontal radiograph of the chest was obtained. Comparison: Comparison is made to chest radiograph 1622 FINDINGS: No lines and tubes are seen. The cardiomediastinal silhouette is stable. The lungs are clear. No evid ence of pleural effusion or pneumothorax. IMPRESSION: No acute chest disease. ACT 112: Negative or not required by law. Electronically signed by: Daryl Zambrano M.D. 10/24/2021 8:28 PM
[2021-10-24 20:59] LABS: Appearance Urine Clear (Clear); Basophils # (auto) 0.02 K/uL (0-0.2); Basophils % (auto) 0.3 %; Bilirubin Urine Negative (Negative); Blood Urine Negative (Negative); Color Urine Yellow; Eosinophils # (auto) 0.13 K/uL (0-0.5); Eosinophils % (auto) 1.9 %; Glucose Urine UA Negative (Negative); Hematocrit (blood only) 46.9 % (42-52); Hemoglobin 15.8 g/dL (14.0-18.0); Immature Granulocytes # (auto) 0.02 K/uL (0.00-0.02); Immature Granulocytes % (auto) 0.3 %; Ketones Urine Negative (Negative); Leukocyte Esterase Urine Negative (Negative); Lymphocytes % (auto) 24.9 %; Mean Corpuscular Hemoglobin 30.2 pg (25-34); Mean Corpuscular Hgb Conc 33.7 g/dL (32-36); Mean Corpuscular Volume 89.5 fL (80-100); Mean Platelet Volume 11.2 fL (7.4-10.4); Monocytes # (auto) 0.72 K/uL (0.11-0.59); Monocytes % (auto) 10.5 %; Neutrophils # (auto) 4.25 K/uL (1.4-6.5); Neutrophils % (auto) 62.1 %; Nitrite Urine Negative (Negative); Platelet Count 188 K/uL (130-400); Protein Urine Negative (Negative); RDW Coefficient of Variation 13.8 % (11.5-14.5); RDW Standard Deviation 45.2 fL (36.4-46.3); Red Blood Count 5.24 M/uL (4.7-6.1); Specific Gravity Urine 1.013 (1.000-1.030); Urobilinogen Urine Negative (Negative); White Blood Count 6.84 K/uL (4.8-10.8); pH Urine 5.5 (4.5-7.5)
[2021-10-24] MEDS ORDERED: METOPROLOL TARTRATE 1 MG/ML VIAL IV STA (21:15)
[2021-10-24 21:21] LABS: Alanine Aminotransferase 28 U/L (7-52); Albumin Globulin Ratio 1.5 (0.9-2); Albumin Level 4.7 gm/dl (3.4-5.0); Alkaline Phosphatase 72 U/L (34-104); Anion Gap 8 (3-11); Aspartate Aminotransferase 19 U/L (13-39); Bilirubin,Total 0.6 mg/dl (0.2-1.0); Blood Urea Nitrogen 18 mg/dl (6-23); Calcium 9.8 mg/dl (8.5-10.1); Carbon Dioxide 25 mmol/L (21-32); Chloride 104 mmol/L (98-107); Est GFR (Non-African American) 97.5 ml/min; Globulin 3.2 gm/dl (2.5-4.0); Glucose 85 mg/dl (70-99(Fasting)); Potassium 4.2 mmol/L (3.5-5.1); Sodium 137 mmol/L (136-145); Total Protein 7.9 gm/dl (6.0-8.3)
[2021-10-24 21:27] LABS: Troponin I High Sensitivity 4.6 pg/ml (0-20)
[2021-10-24] MEDS ORDERED: SODIUM CHLORIDE 0.9% 1000ML 1,000 ML IV SCH (21:30)
--- NOTE | 2021-10-24 22:13 | Emergency Department Note ---
History of Present Illness General Chief complaint: Dizziness Stated complaint: PASSED OUT, DIZZINESS, HEADACHE Time Seen by Provider: 10/24/21 20:44 Source: patient Mode of arrival: ambulatory Limitations: no limitations History of Present Illness Provider complaint: dizziness, sycnope Onset (ago): hour(s) This is a 56-year-old male presents emergency department due to recurrent episode of syncope, lightheadedness, palpitations. Patient states he began to feel weak with blurred vision and tunnel vision and did lose consciousness falling backwards and striking his head. Patient with recent admission and diagnosis of atrial fibrillation. Patient underwent subsequent cardioversion. He states he is taking his medications including anticoagulation as prescribed. He states since that time he woke up today he was not feeling well. He states he had increased fatigue, palpitations, and lightheadedness. Patient denies fevers, chills, vomiting, diarrhea. Patient states he was more short of breath with exertion. Denies other cough or cold symptoms. Patient states upon following up with his PCP he was noted to be in a rapid A. fib again and they did contact his cleat maker who could not see him for another month. Patient then had 2 subsequent episodes of near syncope. Family concerned given recent events as well as patient's other medical problems and presented to the e mergency room for additional evaluation. Pt seen during a time of high acuity and national emergency pandemic while wearing PPE. 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 Hypertension Peripheral vascular disease Syncope Surgical History H/O arthroscopic knee surgery H/O varicose vein ligation and stripping History of appendectomy Social History Smoking Status: Never smoker Hx Alcohol Use: Yes Alcohol type: beer Hx Substance Use: No Preferred Language: Welsh Communication Ability: Effective Coal Screener Required: No Beliefs That Will Affect Care: None marital status: Current Living Situation: Spouse How many Children do You have: 1 Other Information That Helps Us Care for You: No Feels Safe at Home: Yes Safety Concerns: Feels Safe At This Time Assistive Devices: None Review of Systems A total of 10 systems reviewed and were otherwise negative All systems reviewed & are unremarkable except as noted in HPI & below Physical Exam Vital Signs Vital Signs - 24 hr 10/24/21 19:58 10/24/21 20:44 10/24/21 21:24 Temperature 36.3 C L Temperature Source Oral Pulse Rate 98 H 107 H Pulse Rate [Right Finger] 106 H Pulse Rhythm Regular Pulse Rhythm [Right Finger] Irregular Pulse Strength Normal Pulse Strength [Right Finger] Normal Respiratory Rate 18 16 Respiratory Effort / Characteristics Non-Labored Spontaneous Non-Labored Respiratory Depth Normal Normal Respiratory Pattern Regular Blood Pressure 149/88 H 142/97 H Blood Pressure [Right Arm] 142/97 H Blood Pressure Mean 108 Blood Pressure Mean [Right Arm] 112 Blood Pressure Position Sitting Pulse Oximetry 99 99 Oxygen Delivery Method Room Air Room Air Sepsis Recent Fever Within 48 Hours No Sepsis New/Unexplained Change in Mental Status N/A Sepsis Action Taken by Nursing No Action Required Pulse Oximetry Post Tiitration 99 10/24/21 22:12 Temperature Temperature Source Pulse Rate Pulse Rate [Right Finger] 93 H Pulse Rhythm Pulse Rhythm [Right Finger] Irregular Pulse Strength Pulse Strength [Right Finger] Normal Respiratory Rate 19 Respiratory Effort / Characteristics Non-Labored Respiratory Depth Normal Respiratory Pattern Blood Pressure Blood Pressure [Right Arm] 142/97 H Blood Pressure Mean Blood Pressure Mean [Right Arm] 112 Blood Pressure Position Pulse Oximetry 98 Oxygen Delivery Method Room Air Sepsis Recent Fever Within 48 Hours Sepsis New/Unexplained Change in Mental Status Sepsis Action Taken by Nursing Pulse Oximetry Post Tiitration GENERAL: alert, well appearing, well nourished, no distress, non-toxic HEAD: nc/at, no kaminski signs, no raccoon eyes EYE EXAM: normal conjunctiva, PERRL and EOM's grossly intact, no nystagmus OROPHARYNX: no exudate, no erythema, lips, buccal mucosa, and tongue normal and mucous membranes are moist NECK: supple, no nuchal rigidity, no adenopathy, non-tender, FROM LUNGS: Clear to auscultation. Normal chest wall mechanics, no w/r/r HEART: no murmurs, S1 normal and S2 normal, atrial fibrillation in the 120s ABDOMEN: abdomen soft, non-tender, normo-active bowel sounds, no masses, no rebound or guarding. BACK: Back is symmetrical on inspection and there is no deformity, no midline tenderness, no CVA tenderness. SKIN: no rashes and no bruising UPPER EXTREMITIES: upper extremities are grossly normal. FROM, nml pulses b/l. LOWER EXTREMITIES: No pitting edema. FROM, nml pulses b/l. Abrasion noted to the anterior aspect of the distal right lower extremity NEURO EXAM: Normal sensorium, cranial nerves II-XII grossly intact, normal speech, no gross weakness of arms, no gross weakness of legs. Gross sensation intact. Course Administered Medications Amlodipine Besylate (Amlodipine Besylate 5 Mg Tab) 5 mg PO DAILY SIMONA Stop: 11/24/21 08:59 Last Admin: 10/25/21 08:20 Dose: 5 mg Documented by: [id number] Apixaban (Apixaban 5 Mg Tablet) 5 mg PO BID SIMONA Stop: 11/24/21 08:59 Last Admin: 10/25/21 20:50 Dose: 5 mg Documented by: [id number] Admin: 10/25/21 08:20 Dose: 5 mg Documented by: [id number] Losartan Potassium (Losartan Potassium 25 Mg Tab) 25 mg PO QAM SIMONA Stop: 11/24/21 08:59 Last Admin: 10/25/21 08:21 Dose: 25 mg Documented by: [id number] Sotalol HCl (Sotalol Hcl 80 Mg Tab) 80 mg PO BID SIMONA Stop: 11/24/21 09:44 Last Admin: 10/25/21 20:50 Dose: 80 mg Documented by: [id number] Admin: 10/25/21 10:27 Dose: 80 mg Documented by: [id number] Discontinued Medications Sodium Chloride (Nss 1000ml) 1,000 mls @ 125 mls/hr IV .Q8H SIMONA Stop: 07/20/22 21:29 Last Infusion: 10/25/21 01:44 Dose: 0 mls/hr Documented by: [id number] Admin: 10/24/21 21:54 Dose: 125 mls/hr Documented by: [id number] Sodium Chloride (Nss 1000ml) 1,000 mls @ 80 mls/hr IV .[id number] SIMONA Stop: 10/25/21 14:12 Last Infusion: 10/25/21 15:38 Dose: 0 mls/hr Documented by: [id number] Admin: 10/25/21 02:54 Dose: 80 mls/hr Documented by: [id number] Metoprolol Tartrate (Metoprolol Tartrate 1 Mg/Ml Vial) 5 mg IV NOW STA Stop: 10/24/21 21:16 Last Admin: 10/24/21 21:24 Dose: 5 mg Documented by: [id number] Metoprolol Tartrate (Metoprolol Tartrate 25 Mg Tab) 25 mg PO BID SIMONA Stop: 11/24/21 08:59 Last Admin: 10/25/21 08:21 Dose: 25 mg Documented by: [id number] Medical Decision Making Differential Diagnosis Differential diagnosis includes etiologies such as vasovagal event, infection, hypoglycemia, electrolyte abnormalities, cardiac sources, intracerebral event, toxicologic, neurologic, as well as others were entertained. Medical Records Attestation: I reviewed the patient's medical records. Home Medications Current Medication List: was personally reviewed by me Laboratory Data Attestation: I reviewed the patient's lab results. Result diagrams: 10/25/21 05:46 10/25/21 05:46 Lab Results 10/24/21 10/24/21 10/24/21 Range/Units 20:37 20:37 20:37 WBC 6.84 (4.8-10.8) K/uL RBC 5.24 (4.7-6.1) M/uL Hgb 15.8 (14.0-18.0) g/dL Hct 46.9 (42-52) % MCV 89.5 (80-100) fL MCH 30.2 (25-34) pg MCHC 33.7 (32-36) g/dL RDW Std Deviation 45.2 (36.4-46.3) fL RDW Coeff of Jacky 13.8 (11.5-14.5) % Plt Count 188 (130-400) K/uL MPV 11.2 H (7.4-10.4) fL Immature Gran % (Auto) 0.3 % Neut % (Auto) 62.1 % Lymph % (Auto) 24.9 % [place] % (Auto) 10.5 % Eos % (Auto) 1.9 % Baso % (Auto) 0.3 % Neut # (Auto) 4.25 (1.4-6.5) K/uL Lymph # (Auto) 1.70 (1.2-3.4) K/uL [place] # (Auto) 0.72 H (0.11-0.59) K/uL Eos # (Auto) 0.13 (0-0.5) K/uL Baso # (Auto) 0.02 (0-0.2) K/uL Immature Gran # (Auto) 0.02 (0.00-0.02) K/uL Sodium 137 (136-145) mmol/L Potassium 4.2 (3.5-5.1) mmol/L Chloride 104 (98-107) mmol/L Carbon Dioxide 25 (21-32) mmol/L Anion Gap 8 (3-11) BUN 18 (6-23) mg/dl Creatinine 0.82 (0.6-1.4) mg/dl Est Cr Clr Drug Dosing Not Reportable Est GFR ( Amer) 113.0 ml/min Est GFR (Non-Af Amer) 97.5 ml/min BUN/Creatinine Ratio 22.0 H (10-20) Glucose 85 (70-99(Fasting)) mg/dl Calcium 9.8 (8.5-10.1) mg/dl Magnesium (1.7-2.4) mg/dl Total Bilirubin 0.6 (0.2-1.0) mg/dl AST 19 (13-39) U/L ALT 28 (7-52) U/L Alkaline Phosphatase 72 (34-104) U/L Troponin I High Sens 4.6 (0-20) pg/ml Total Protein 7.9 (6.0-8.3) gm/dl Albumin 4.7 (3.4-5.0) gm/dl Globulin 3.2 (2.5-4.0) gm/dl Albumin/Globulin Ratio 1.5 (0.9-2) TSH 2.301 (0.300-4.500) uIu/ml Urine Color Urine Appearance (Clear) Urine pH (4.5-7.5) Ur Specific [place] (1.000-1.030) Urine Protein (Negative) Urine Glucose (UA) (Negative) Urine Ketones (Negative) Urine Blood (Negative) Urine Nitrite (Negative) Urine Bilirubin (Negative) Urine Urobilinogen (Negative) Ur Leukocyte Esterase (Negative) SARS-CoV-2, RNA, NAAT (NEGATIVE) 10/24/21 10/24/21 10/24/21 Range/Units 20:37 20:53 23:29 WBC (4.8-10.8) K/uL RBC (4.7-6.1) M/uL Hgb (14.0-18.0) g/dL Hct (42-52) % MCV (80-100) fL MCH (25-34) pg MCHC (32-36) g/dL RDW Std Deviation (36.4-46.3) fL RDW Coeff of Jacky (11.5-14.5) % Plt Count (130-400) K/uL MPV (7.4-10.4) fL Immature Gran % (Auto) % Neut % (Auto) % Lymph % (Auto) % [place] % (Auto) % Eos % (Auto) % Baso % (Auto) % Neut # (Auto) (1.4-6.5) K/uL Lymph # (Auto) (1.2-3.4) K/uL [place] # (Auto) (0.11-0.59) K/uL Eos # (Auto) (0-0.5) K/uL Baso # (Auto) (0-0.2) K/uL Immature Gran # (Auto) (0.00-0.02) K/uL Sodium (136-145) mmol/L Potassium (3.5-5.1) mmol/L Chloride (98-107) mmol/L Carbon Dioxide (21-32) mmol/L Anion Gap (3-11) BUN (6-23) mg/dl Creatinine (0.6-1.4) mg/dl Est Cr Clr Drug Dosing Est GFR ( Amer) ml/min Est GFR (Non-Af Amer) ml/min BUN/Creatinine Ratio (10-20) Glucose (70-99(Fasting)) mg/dl Calcium (8.5-10.1) mg/dl Magnesium 1.8 (1.7-2.4) mg/dl Total Bilirubin (0.2-1.0) mg/dl AST (13-39) U/L ALT (7-52) U/L Alkaline Phosphatase (34-104) U/L Troponin I High Sens (0-20) pg/ml Total Protein (6.0-8.3) gm/dl Albumin (3.4-5.0) gm/dl Globulin (2.5-4.0) gm/dl Albumin/Globulin Ratio (0.9-2) TSH (0.300-4.500) uIu/ml Urine Color Yellow Urine Appearance Clear (Clear) Urine pH 5.5 (4.5-7.5) Ur Specific [place] 1.013 (1.000-1.030) Urine Protein Negative (Negative) Urine Glucose (UA) Negative (Negative) Urine Ketones Negative (Negative) Urine Blood Negative (Negative) Urine Nitrite Negative (Negative) Urine Bilirubin Negative (Negative) Urine Urobilinogen Negative (Negative) Ur Leukocyte Esterase Negative (Negative) SARS-CoV-2, RNA, NAAT NEGATIVE (NEGATIVE) Imaging Data Radiologist's Impression: Chest X-Ray 10/24/21 20:02 XR chest 1V portable CLINICAL HISTORY: weakness TECHNIQUE: Single frontal radiograph of the chest was obtained. Comparison: Comparison is made to chest radiograph 1621 FINDINGS: No lines and tubes are seen. The cardiomediastinal silhouette is stable. The lungs are clear. No evidence of pleural effusion or pneumothorax. IMPRESSION: No acute chest disease. ACT 112: Negative or not required by law. Electronically signed by: Daryl Zambrano M.D. 10/24/2021 8:[address] head: No skull fracture, acute bleed, or acute intracranial abnormality. No change compared with head CT 10/20/2021. Radiologist: Minal Winn MD CT C-spine: Degenerative disc disease with large anterior osteophytes throughout the cervical spine, can result in dysphagia, correlate clinically. No fracture or acute abnormality. Radiologist: Minal Winn MD ECG Data Attestation: I personally reviewed and interpreted this ECG as follows: Indication: + syncope and + tachycardia Rate (beats per minute): 113 Rhythm: + atrial fibrillation ECG Intervals/blocks: + Normal QRS and + Normal QT ECG [place]: + Normal ECG ST segments: + Nonspecific ST abnormalities MDM Narrative An order was placed for continuous cardiac monitoring. The monitor shows a rate of _102_ with _atrial fibrillation__ rhythm. This is a 48-year-old male presents after current episode of syncope and concern for recurrent atrial fibrillation. Patient recently admitted and cardioverted following this however appears to be back in atrial fibrillation upon presentation here. Patient given additional IV metoprolol with improvement in rate and overall symptoms. Labs were reassuring with mild hypomagnesemia noted. No other evidence of trauma on CT and x-ray imaging. Case discussed with hospitalist for additional evaluation and management given recurrent symptoms. I have a low suspicion for any additional occult traumatic bleeding despite use of anticoagulation. Patient with no evidence of trauma on exam other than abrasion to the right lower extremity. All results and plan discussed with patient and family at bedside, they verbalized understanding and were in agreement. Patient with a normal and nonfocal neuro exam at bedside. Impression & Plan Syncope, Atrial fibrillation, Hypertension, CHI (closed head injury) Discharge Plan Visit Data Chief Complaint: Dizziness Stated Complaint: PASSED OUT, DIZZINESS, HEADACHE Discharge Problem: Syncope, Atrial fibrillation, Hypertension, CHI (closed head injury) Patient Disposition: Admitted As Inpatient Discharge Instructions Interventions: ED Discharge Assessment Last Done: 10/25/21 02:00 Discharge Problem: Syncope Qualifiers: Syncope type: unspecified Qualified Code(s): R55 - Syncope and collapse Atrial fibrillation Qualifiers: Atrial fibrillation type: unspecified Qualified Code(s): I48.91 - Unspecified atrial fibrillation Hypertension Qualifiers: Hypertension type: primary hypertension Qualified Code(s): I10 - Essential (primary) hypertension CHI (closed head injury) Qualifiers: Encounter type: initial encounter Qualified Code(s): S09.90XA - Unspecified injury of head, initial encounter
[2021-10-25] MEDS ORDERED: POLYETHYLENE (MIRALAX) 17 GM PACK PO PRN (01:43)
[2021-10-25] MEDS ORDERED: NITROGLYCERIN SL 0.4 MG/TAB TAB SL PRN (01:43)
[2021-10-25] MEDS ORDERED: ACETAMINOPHEN 325 MG TAB PO PRN (01:43)
[2021-10-25] MEDS ORDERED: METOPROLOL TARTRATE 1 MG/ML VIAL IV PRN (01:43)
[2021-10-25] MEDS ORDERED: SODIUM CHLORIDE 0.9% 1000ML 1,000 ML IV SCH (01:43)
--- NOTE | 2021-10-25 02:22 | History and Physical Report ---
DATE OF ADMISSION: 10/25/2021. CHIEF COMPLAINT: Syncope, atrial fibrillation. HISTORY OF PRESENT ILLNESS: This is a 56-year-old male with past medical history significant for recent diagnosis of atrial fibrillation, and peripheral artery disease, hypertension, sigmoid diverticulosis, chronic venous stasis dermatitis of the lower extremities, presents with syncope. The patient says he was helping a friend with camping when suddenly he passed out for a brief moment and when he woke up, confused or brief moment. He did not hit his head. He was able to ambulate afterwards. Whole day he was feeling lightheaded. Denies any chest pain. During the episode, he was short of breath . Currently, there is no shortness of breath, no cough, no fever, no chills, no earache, no runny nose, no sore throat. No nausea, no vomiting, no abdominal pain. Normal bowel and bladder movements. Appetite is okay. He has swelling in the lower extremity on and off. Today, he is having swelling in the right lower extremity. After a dose of IV Lopressor in the ER, his heart rate is in the 80s and 90s. ALLERGIES: No known drug allergies. PAST MEDICAL HISTORY: As mentioned above. PAST SURGICAL HISTORY: Colonoscopy, knee arthroscopy, varicose vein stripping and ligation, appendectomy. MEDICATIONS: The patient is on amlodipine 5 mg p.o. daily, Eliquis 5 mg p.o. b.i.d., losartan 25 mg p.o. a.m., metoprolol tartrate 25 mg p.o. b.i.d. FAMILY HISTORY: Significant for no family history on file. SOCIAL HISTORY: . No smoking. Alcohol, occasional. No drug use. REVIEW OF SYSTEMS: As per HPI. Rest of review of systems is negative. PHYSICAL EXAMINATION: GENERAL: The patient is obese, not in acute distress. VITAL SIGNS: Temperature 36.3, pulse 85, respiratory rate 19, blood pressure 133/94, oxygen 97% on room air. HEENT: Pupils are equal, round, and reactive to light. Oral mucosa moist. NECK: No JVD. No neck masses. CARDIOVASCULAR: S1 and S2 heard. Regular rate and rhythm. No murmur, no gallop. RESPIRATORY SYSTEM: Normal AP diameter. No accessory muscle use. No wheezing, no crackles. ABDOMEN: Soft. Bowel sounds are present, nontender, no distention. CENTRAL NERVOUS SYSTEM: Cranial nerves II-XII grossly intact, nonfocal. EXTREMITIES: Lower extremities, chronic skin changes seen. Edema present, right greater than left. LABORATORY DATA: WBC 6.8, hemoglobin 15.8, hematocrit 46.9, platelets 188. Sodium 137, potassium 4.2, chloride 104, bicarb 25, BUN 18, creatinine 0.8, serum glucose 85, calcium 9.8, magnesium 1.8, total bilirubin 0.6, AST 19, ALT 28, alkaline phosphatase 72. Troponin 1 high sensitivity 4.6. TSH 2.3. Urinalysis negative. SARS-CoV-2 rapid test negative. IMAGING DATA: CT of the head, preliminary report unremarkable. Cervical spine CT, preliminary report shows cervical spine degenerative disk disease with large anterior osteophytes throughout the cervical spine, can result in dysphagia, no fracture or acute abnormality seen. EKG: Atrial fibrillation with rapid ventricular response at a rate of 113. ASSESSMENT AND PLAN: This is a 56-year-old male who presents with syncope and rapid atrial fibrillation. 1. Syncope: He had similar episode last admission, secondary to atrial fibrillation. At that time, he was status post cardioversion. He had similar episode today and presents with rapid atrial fibrillation with heart rate in 110's. After IV Lopressor, his heart rate is improved and he is feeling better. Troponin is negative. Currently, resting comfortably and hemodynamically stable. Will monitor in the tele floor. Placed on IV Lopressor prn . Consult cardiology in the a.m. N.p.o. until seen by cardiology. Follow the repeat cardiac enzymes. 2. Rapid atrial fibrillation: IV Lopressor p.r.n. Continue home metoprolol, Eliquis. Await cardiac input. 3. History of hypertension: Continue amlodipine, losartan, metoprolol. Monitor the blood pressure. 4. History of peripheral artery disease: On Eliquis. 5. Lower extremity edema, right greater than left: on Eliquis. Will check for Doppler. 6. Deep venous thrombosis prophylaxis: On Eliquis. DISPOSITION: Closely monitor in the tele floor. PT, OT prior to discharge. Social service to help with discharge planning. Level 1 full code. Job ID: [id number] [facility]
[2021-10-25 06:32] LABS: Basophils # (auto) 0.02 K/uL (0-0.2); Basophils % (auto) 0.4 %; Eosinophils # (auto) 0.13 K/uL (0-0.5); Eosinophils % (auto) 2.9 %; Hematocrit (blood only) 44.5 % (42-52); Hemoglobin 14.9 g/dL (14.0-18.0); Lymphocytes # (auto) 1.52 K/uL (1.2-3.4); Lymphocytes % (auto) 34.1 %; Mean Corpuscular Hemoglobin 29.9 pg (25-34); Mean Corpuscular Hgb Conc 33.5 g/dL (32-36); Mean Corpuscular Volume 89.4 fL (80-100); Mean Platelet Volume 11.2 fL (7.4-10.4); Monocytes # (auto) 0.49 K/uL (0.11-0.59); Neutrophils % (auto) 51.6 %; Platelet Count 167 K/uL (130-400); RDW Coefficient of Variation 13.9 % (11.5-14.5); RDW Standard Deviation 45.3 fL (36.4-46.3); Red Blood Count 4.98 M/uL (4.7-6.1); White Blood Count 4.46 K/uL (4.8-10.8)
--- NOTE | 2021-10-25 06:46 | Ultrasound Report ---
US venous doppler LE RT HISTORY: 56 years-old Male right lower ext edema. dvt? Acute pain and swelling of the right lower ex tremity COMPARISON: None TECHNIQUE: Multiple real-time sonographic images of the right lower extremity deep venous structures were obtained assessing grayscale appearance, color and spectral flow. FINDINGS: Normal flow, compressibility, phasicity and augmentation. Incidental note is made of a nonspecific 4. 9 x 1.4 x 2.8 cm right inguinal chain lymph node with normal central fatty hilum, favored to be react milla. IMPRESSION: No sonographic evidence of deep venous thrombosis. ACT 112: Negative or not required by law. The above report was generated using voice recognition software. It may contain grammatical, syntax o r spelling errors. Electronically signed by: Damián Ariza M.D. 10/25/2021 6:45 AM
[2021-10-25 07:01] LABS: Troponin I High Sensitivity 3.5 pg/ml (0-20)
[2021-10-25 07:06] LABS: BUN Creatinine Ratio 21.7 (10-20); Creatinine Clr Calc Pharmacy 187.2 ml/min; Est GFR (African American) 128.5 ml/min; Est GFR (Non-African American) 110.8 ml/min
--- NOTE | 2021-10-25 07:16 | CT Scan Report ---
CT head/brain wo con CLINICAL HISTORY: Syncopal episode. COMPARISON STUDY: 10/20/2021 CT DOSE: 1269.74 mGy.cm TECHNIQUE: Standard CT of the Brain was performed without IV contrast. A dose lowering technique was utilized adhering to the principles of ALARA. FINDINGS: Extraaxial space: There is no evidence for subdural hematoma. There are no extra-axial fluid collecti ons. Ventricles and cisterns: The ventricles are normal in size and configuration. There is no evidence fo r midline shift or mass effect. Parenchyma: There is no subarachnoid or intraparenchymal hemorrhage. There is no evidence for an acut e infarct or cerebral edema. There is homogeneous attenuation of the brain parenchyma. There are no g ross mass lesions. Osseous structures: There is no evidence for an acute fracture. The visualized paranasal sinuses are clear. The mastoid air cells are clear bilaterally. Soft tissues: There is no evidence for focal soft tissue swelling. IMPRESSION: 1. No acute intracerebral pathology. 2. There is no significant interval change. ACT 112: Negative or not required by law. Electronically signed by: Kam Chaidez M.D. 10/25/2021 7:14 AM
--- NOTE | 2021-10-25 07:20 | CT Scan Report ---
CT cervical spine wo con CLINICAL HISTORY: Syncopal episode. Neck pain. COMPARISON STUDY: No previous studies for comparison. CT DOSE: TECHNIQUE: Standard CT of the Cervical Spine was performed without IV contrast. A dose lowering toan hnique was utilized adhering to the principles of ALARA. FINDINGS: Bones: There is no evidence for an acute fracture or malalignment. The heights of the vertebral anne marie s are maintained. The vertebral bodies are in anatomic alignment. The odontoid is intact and the atla ntoaxial articulation is within normal limits. Disc spaces: There is mild disc space narrowing seen throughout the cervical spine with large bridgin g anterior osteophyte formation present from C3 through C7. Calcification anterior longitudinal ligam ent is also present. Apophyseal joints: Mild degenerative apophyseal joint disease is also seen bilaterally. Soft tissues: The prevertebral soft tissues are within normal limits. IMPRESSION: 1. No acute osseous pathology. 2. Degenerative disc and degenerative joint disease. ACT 112: Negative or not required by law. Electronically signed by: Kam Chaidez M.D. 10/25/2021 7:17 AM
[2021-10-25] MEDS: APIXABAN 5 MG TABLET PO SCH ×2 (08:20→20:50)
[2021-10-25] MEDS: amLODIPine BESYLATE 5 MG TAB PO SCH (08:20)
[2021-10-25] MEDS: LOSARTAN POTASSIUM 25 MG TAB PO SCH (08:21)
--- NOTE | 2021-10-25 08:48 | Cardiology Consultation ---
Date of Consultation October 25, 2021 Assessment & Plan (1) Atrial fibrillation: (2) Syncope: (3) Hypertension: Patient with recurrent afib RVR with recurrent syncope/near syncope/lightheadedness associated with afib. No evidence of pauses or high degree AV block to correlate with syncope. He is symptomatic with afib RVR. Patient underwent cardioversion on 10/21 and was found to be back in afib on 10/24. Recommend initiation of sotalol 80 mg BID. Stop metoprolol. He will require hospitalization for 3 days for antiarrhythmic load. Discussed with patient and he is agreeable. Continue Eliquis for anticoagulation. If he does not spontaneously convert to NSR with sotalol, will plan on cardioversion prior to discharge. Case discussed with Dr. Freire. Will follow. Supervising Physician Co-Signing Physician Notes Patient seen and examined with Latisha Luna PA-C. Agree with findings and assessment as above. Patient presents with recurrent, symptomatic atrial fibrillation after undergoing DC cardioversion last week. We will proceed with rhythm control strategy. Sotalol started. The benefits, risks and alternatives were discussed with the patient he is in agreement. Daily EKGs. Continuous t elemetry monitoring, follow and replete lites as necessary. History of Present Illness Reason for Consultation: Atrial fibrillation; Syncope Requesting Physician: Dr. Mratínez Attending Physician: Dr. Freire History of Present Illness Patient is a 56 -year-old male Who is known to [facility] cardiology after recent diagnosis of paroxysmal atrial fibrillation initially diagnosed in August 2021. At that time, patient was started on Eliquis and metoprolol. Upon 4 weeks of anticoagulation therapy, patient was arranged to have future direct-current cardioversion. However prior to cardioversion, patient was admitted last week to [facility] with complaints of near syncope and palpitations. He subsequently underwent cardioversion on 10/21/2021 and successfully converted to normal sinus rhythm. He was discharged on metoprolol 25 mg twice daily in addition to his Eliquis 5 mg twice daily. Due to uncontrolled hypertension, losartan was also initiated at 25 mg daily. Amlodipine was reduced to 5 mg as well on discharge to aid with LE edema. Upon discharge on 10/21, patient was feeling well. He admits to not taking evening dose of metoprolol on Sunday or Sunday evening as he felt his HR was 'too low'. He reported mild dizziness at times on Sunday but no palpitations. He reports compliance with his other medications, including Eliquis. On Sunday, patient awakened not feeling well. Reported palpitations and tachypalpitations with dizziness. He had PCP office visit that day and provider noted irregular rhythm in clinic. Patient declined EKG. No med changes were made . Later yesterday, patient was helping a friend with their camper and felt significantly lightheaded with tunnel vision. He leaned against a stack of firewood and the next thing he knew he was on the ground. no injury reported. No incontinence. He came to the ER. Found to have afib RVR. Treated with IV Lopressor. Heart rates improving. Dizziness improving. He denies chest pain or dyspnea. At time of consult, patient resting in bed comfortably. Denies acute complaints but admits when he gets out of bed, he feels palpitations and lightheaded. Heart rates at rest in the 90's and quickly increases to 120-130's. 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 Hypertension Peripheral vascular disease Syncope Surgical History H/O arthroscopic knee surgery H/O varicose vein ligation and stripping History of appendectomy Social History Smoking Status: Never smoker Hx Alcohol Use: Yes Alcohol type: beer Hx Substance Use: No Preferred Language: Thai Communication Ability: Effective 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 Operator Required: No Beliefs That Will Affect Care: None Current Living Situation: Spouse Other Information That Helps Us Care for You: No Feels Safe at Home: Yes Safety Concerns: Feels Safe At This Time Assistive Devices: Glasses Review of Systems Review of Systems: All systems reviewed & are unremarkable except as noted in HPI & below Physical Exam Constitutional: WD/WN, vitals as above well developed; no acute distress Eyes: PERRL, conjunctivae normal, anicteric sclerae Neck: trachea midline, no thyromegaly Respiratory: normal respiratory effort, lungs clear to auscultation Cardiovascular: Rate/Rhythm: + tachycardic and + irregularly irregular Heart Sounds: normal S1 and normal S2; no murmur Palpation: normal PMI Vessels: no JVD Extremities: + edema (trace b/l ) Gastrointestinal (Abdomen): normal bowel sounds, soft, nontender, no hepatosplenomegaly Skin: no rashes, warm and dry Neurologic: PERRL, EOMI, accommodation nl, no face palsy, no dysarthria Results & [facility] Vital Signs (Past 12 Hours) Vital Signs Temp Pulse Pulse Resp BP BP Pulse Ox 10/25/21 08:00 36.7 C 74 18 146/64 H 96 10/25/21 04:28 98 H 10/25/21 04:15 36.6 C 101 H 16 131/87 97 10/25/21 01:43 36.3 C L 76 16 153/100 H 98 10/25/21 00:39 80 16 119/89 96 10/24/21 23:55 85 19 133/94 97 10/24/21 22:12 93 H 19 142/97 H 98 10/24/21 21:24 107 H 142/97 H Pulse Ox 10/25/21 08:00 10/25/21 04:28 10/25/21 04:15 10/25/21 01:43 98 10/25/21 00:39 10/24/21 23:55 10/24/21 22:12 10/24/21 21:24 Laboratory Results Cardiac Enzymes 10/24/21 10/25/21 Range/Units 20:37 05:46 AST 19 (13-39) U/L Troponin I High Sens 4.6 3.5 (0-20) pg/ml CBC 10/24/21 10/25/21 Range/Units 20:37 05:46 WBC 6.84 4.46 L (4.8-10.8) K/uL RBC 5.24 4.98 (4.7-6.1) M/uL Hgb 15.8 14.9 (14.0-18.0) g/dL Hct 46.9 44.5 (42-52) % Plt Count 188 167 (130-400) K/uL Neut # (Auto) 4.25 2.30 (1.4-6.5) K/uL Lymph # (Auto) 1.70 1.52 (1.2-3.4) K/uL [place] # (Auto) 0.72 H 0.49 (0.11-0.59) K/uL Eos # (Auto) 0.13 0.13 (0-0.5) K/uL Baso # (Auto) 0.02 0.02 (0-0.2) K/uL Comprehensive Metabolic Panel 10/24/21 10/25/21 Range/Units 20:37 05:46 Sodium 137 137 (136-145) mmol/L Potassium 4.2 4.0 (3.5-5.1) mmol/L Chloride 104 109 H (98-107) mmol/L Carbon Dioxide 25 23 (21-32) mmol/L BUN 18 13 (6-23) mg/dl Creatinine 0.82 0.60 (0.6-1.4) mg/dl Glucose 85 92 (70-99(Fasting)) mg/dl Calcium 9.8 9.0 (8.5-10.1) mg/dl AST 19 (13-39) U/L ALT 28 (7-52) U/L Alkaline Phosphatase 72 (34-104) U/L Total Protein 7.9 (6.0-8.3) gm/dl Albumin 4.7 (3.4-5.0) gm/dl Intake and Output 10/24/21 10/25/21 10/25/21 22:59 06:59 14:59 Intake Total 479.167 / 479.167 Balance 479.167 / 479.167 Intake: IV 479.167 / 479.167 Sodium Chloride 0.9% 1000ML 1, 479.167 / 479.167 000 ml @ 125 mls/hr IV .Q8H [facility] Rx#:[id number] Other: Weight 130.2 kg Weight Measurement Method Built in [facility] Diagnostic Findings Telemetry reviewed: Persistent afib with variable rates ranging 80-130 bpm. No pauses. EKG reviewed from 10/24/21: Atrial fibrillation with RVR when compared with ECG of 21-OCT-2021 12:09, Atrial fibrillation has replaced Sinus rhythm QT/QTc 340/466 Laboratory Results WBC 4.46 K/uL (4.8-10.8) L 10/25/21 05:46 RBC 4.98 M/uL (4.7-6.1) 10/25/21 05:46 Hgb 14.9 g/dL (14.0-18.0) 10/25/21 05:46 Hct 44.5 % (42-52) 10/25/21 05:46 MCV 89.4 fL (80-100) 10/25/21 05:46 MCH 29.9 pg (25-34) 10/25/21 05:46 MCHC 33.5 g/dL (32-36) 10/25/21 05:46 RDW Std Deviation 45.3 fL (36.4-46.3) 10/25/21 05:46 RDW Coeff of Jacky 13.9 % (11.5-14.5) 10/25/21 05:46 Plt Count 167 K/uL (130-400) 10/25/21 05:46 MPV 11.2 fL (7.4-10.4) H 10/25/21 05:46 Immature Gran % (Auto) 0.0 % 10/25/21 05:46 Neut % (Auto) 51.6 % 10/25/21 05:46 Lymph % (Auto) 34.1 % 10/25/21 05:46 [place] % (Auto) 11.0 % 10/25/21 05:46 Eos % (Auto) 2.9 % 10/25/21 05:46 Baso % (Auto) 0.4 % 10/25/21 05:46 Neut # (Auto) 2.30 K/uL (1.4-6.5) 10/25/21 05:46 Lymph # (Auto) 1.52 K/uL (1.2-3.4) 10/25/21 05:46 [place] # (Auto) 0.49 K/uL (0.11-0.59) 10/25/21 05:46 Eos # (Auto) 0.13 K/uL (0-0.5) 10/25/21 05:46 Baso # (Auto) 0.02 K/uL (0-0.2) 10/25/21 05:46 Immature Gran # (Auto) 0.00 K/uL (0.00-0.02) 10/25/21 05:46 Sodium 137 mmol/L (136-145) 10/25/21 05:46 Potassium 4.0 mmol/L (3.5-5.1) 10/25/21 05:46 Chloride 109 mmol/L (98-107) H 10/25/21 05:46 Carbon Dioxide 23 mmol/L (21-32) 10/25/21 05:46 Anion Gap 5 (3-11) 10/25/21 05:46 BUN 13 mg/dl (6-23) 10/25/21 05:46 Creatinine 0.60 mg/dl (0.6-1.4) 10/25/21 05:46 Est Cr Clr Drug Dosing 187.2 ml/min 10/25/21 05:46 Est GFR ( Amer) 128.5 ml/min 10/25/21 05:46 Est GFR (Non-Af Amer) 110.8 ml/min 10/25/21 05:46 BUN/Creatinine Ratio 21.7 (10-20) H 10/25/21 05:46 Glucose 92 mg/dl (70-99(Fasting)) 10/25/21 05:46 Calcium 9.0 mg/dl (8.5-10.1) 10/25/21 05:46 Magnesium 2.0 mg/dl (1.7-2.4) 10/25/21 05:46 Total Bilirubin 0.6 mg/dl (0.2-1.0) 10/24/21 20:37 AST 19 U/L (13-39) 10/24/21 20:37 ALT 28 U/L (7-52) 10/24/21 20:37 Alkaline Phosphatase 72 U/L (34-104) 10/24/21 20:37 Troponin I High Sens 3.5 pg/ml (0-20) 10/25/21 05:46 Total Protein 7.9 gm/dl (6.0-8.3) 10/24/21 20:37 Albumin 4.7 gm/dl (3.4-5.0) 10/24/21 20: Globulin 3.2 gm/dl (2.5-4.0) 10/24/21 20:37 Albumin/Globulin Ratio 1.5 (0.9-2) 10/24/21 20: TSH 2.301 uIu/ml (0.300-4.500) 10/24/21 20:37 Urine Color Yellow 10/24/21 20:37 Urine Appearance Clear (Clear) 10/24/21 20:37 Urine pH 5.5 (4.5-7.5) 10/24/21 20:37 Ur Specific [place] 1.013 (1.000-1.030) 10/24/21 20:37 Urine Protein Negative (Negative) 10/24/21 20:37 Urine Glucose (UA) Negative (Negative) 10/24/21 20: Urine Ketones Negative (Negative) 10/24/21 20:37 Urine Blood Negative (Negative) 10/24/21 20:37 Urine Nitrite Negative (Negative) 10/24/21 20:37 Urine Bilirubin Negative (Negative) 10/24/21 20:37 Urine Urobilinogen Negative (Negative) 10/24/21 20:37 Ur Leukocyte Esterase Negative (Negative) 10/24/21 20:37 SARS-CoV-2, RNA, NAAT NEGATIVE (NEGATIVE) 10/24/21 23:29 Impressions Chest X-Ray 10/24/21 20:02 XR chest 1V portable CLINICAL HISTORY: weakness TECHNIQUE: Single frontal radiograph of the chest was obtained. Comparison: Comparison is made to chest radiograph 1622 FINDINGS: No lines and tubes are seen. The cardiomediastinal silhouette is stable. The lungs are clear. No evidence of pleural effusion or pneumothorax. IMPRESSION: No acute chest disease. ACT 112: Negative or not required by law. Electronically signed by: Daryl Zambrano M.D. 10/24/2021 8:[address] 10/24/21 21:15 CT cervical spine wo con CLINICAL HISTORY: Syncopal episode. Neck pain. COMPARISON STUDY: No previous studies for comparison. CT DOSE: TECHNIQUE: Standard CT of the Cervical Spine was performed without IV contrast. A dose lowering technique was utilized adhering to the principles of ALARA. FINDINGS: Bones: There is no evidence for an acute fracture or malalignment. The heights of the vertebral bodies are maintained. The vertebral bodies are in anatomic alignment. The odontoid is intact and the atlantoaxial articulation is within normal limits. Disc spaces: There is mild disc space narrowing seen throughout the cervical spine with large bridging anterior osteophyte formation present from C3 through C7. Calcification anterior longitudinal ligament is also present. Apophyseal joints: Mild degenerative apophyseal joint disease is also seen bilaterally. Soft tissues: The prevertebral soft tissues are within normal limits. IMPRESSION: 1. No acute osseous pathology. 2. Degenerative disc and degenerative joint disease. ACT 112: Negative or not required by law. Electronically signed by: Kam Chaidez M.D. 10/25/2021 7:[address] 10/24/21 21:15 CT head/brain wo con CLINICAL HISTORY: Syncopal episode. COMPARISON STUDY: 10/20/2021 CT DOSE: 1269.74 mGy.cm TECHNIQUE: Standard CT of the Brain was performed without IV contrast. A dose lowering technique was utilized adhering to the principles of ALARA. FINDINGS: Extraaxial space: There is no evidence for subdural hematoma. There are no extra-axial fluid collections. Ventricles and cisterns: The ventricles are normal in size and configuration. There is no evidence for midline shift or mass effect. Parenchyma: There is no subarachnoid or intraparenchymal hemorrhage. There is no evidence for an acute infarct or cerebral edema. There is homogeneous attenuation of the brain parenchyma. There are no gross mass lesions. Osseous structures: There is no evidence for an acute fracture. The visualized paranasal sinuses are clear. The mastoid air cells are clear bilaterally. Soft tissues: There is no evidence for focal soft tissue swelling. IMPRESSION: 1. No acute intracerebral pathology. 2. There is no significant interval change. ACT 112: Negative or not required by law. Electronically signed by: Kam Chaidez M.D. 10/25/2021 7:14 AM Venous Doppler Study 10/25/21 01:43 US venous doppler LE RT HISTORY: 56 years-old Male right lower ext edema. dvt? Acute pain and swelling of the right lower extremity COMPARISON: None TECHNIQUE: Multiple real-time sonographic images of the right lower extremity deep venous structures were obtained assessing grayscale appearance, color and spectral flow. FINDINGS: Normal flow, compressibility, phasicity and augmentation. Incidental note is made of a nonspecific 4.9 x 1.4 x 2.8 cm right inguinal chain lymph node with normal central fatty hilum, favored to be reactive. IMPRESSION: No sonographic evidence of deep venous thrombosis. ACT 112: Negative or not required by law. The above report was generated using voice recognition software. It may contain grammatical, syntax or spelling errors. Electronically signed by: Damián Ariza M.D. 10/25/2021 6:45 AM 2D echocardiogram report August 29, 2021: Normal LV chamber size with mild concentric LVH. Normal LV systolic function without regional wall motion abnormality. Calculated LV ejection Fraction = 60% (bi-plane method of discs). Poorly visualized valvular structures without significant stenosis or regur gitation by Doppler. Medications Administered Current Inpatient Medications Acetaminophen (Acetaminophen 325 Mg Tab) 650 mg PO Q4H PRN PRN Reason: Pain or Fever Stop: 11/24/21 01:42 Amlodipine Besylate (Amlodipine Besylate 5 Mg Tab) 5 mg PO DAILY [facility] Stop: 11/24/21 08:59 Last Admin: 10/25/21 08:20 Dose: 5 mg Documented by: Apixaban (Apixaban 5 Mg Tablet) 5 mg PO BID SIMONA Stop: 11/24/21 08:59 Last Admin: 10/25/21 08:20 Dose: 5 mg Documented by: Sodium Chloride (Nss 1000ml) 1,000 mls @ 80 mls/hr IV .[id number] SIMONA Stop: 10/25/21 14:12 Last Admin: 10/25/21 02:54 Dose: 80 mls/hr Documented by: Losartan Potassium (Losartan Potassium 25 Mg Tab) 25 mg PO QAM [facility]ONA Stop: 11/24/21 08:59 Last Admin: 10/25/21 08:21 Dose: 25 mg Documented by: Metoprolol Tartrate (Metoprolol Tartrate 1 Mg/Ml Vial) 5 mg IV Q6 PRN PRN Reason: Tachycardia Stop: 11/24/21 01:42 Nitroglycerin (Nitroglycerin Sl 0.4 Mg/Tab Tab) 0.4 mg SL UD PRN PRN Reason: Chest Pain Stop: 11/24/21 01:42 Polyethylene Glycol (Polyethylene (Miralax) 17 Gm Pack) 17 gm PO DAILY PRN PRN Reason: Constipation Stop: 11/24/21 01:42 Sotalol HCl (Sotalol Hcl 80 Mg Tab) 80 mg PO BID SIMONA Stop: 11/24/21 09:44 (1) Atrial fibrillation Atrial fibrillation type: unspecified Qualified Code(s): I48.91 - Unspecified atrial fibrillation (2) Syncope Syncope type: unspecified Qualified Code(s): R55 - Syncope and collapse (3) Hypertension Hypertension type: unspecified Qualified Code(s): I10 - Essential (primary) hypertension
[2021-10-25] MEDS ORDERED: METOPROLOL TARTRATE 25 MG TAB PO SCH (09:00)
[2021-10-25] MEDS: SOTALOL HCL 80 MG TAB PO SCH ×2 (10:27→20:50)
--- NOTE | 2021-10-25 13:25 | Electrocardiogram Report ---
Test Reason : Blood Pressure : / mmHG Vent. Rate : 113 BPM Atrial Rate : 170 BPM P-R Int : 000 ms QRS Dur : 102 ms QT Int : 340 ms P-R-T Axes : 000 008 020 degrees QTc Int : 466 ms Atrial fibrillation with rapid ventricular response Abnormal ECG When compared with ECG of 21-OCT-2021 12:09, Atrial fibrillation has replaced Sinus rhythm Confirmed by Tashi Martin ([id number]) on 10/25/2021 1:24:41 PM Referred By: REFERRED SELF Confirmed By:Tashi Martin
--- NOTE | 2021-10-25 14:22 | Electrocardiogram Report ---
Test Reason : Blood Pressure : / mmHG Vent. Rate : 088 BPM Atrial Rate : 098 BPM P-R Int : 000 ms QRS Dur : 098 ms QT Int : 374 ms P-R-T Axes : 000 011 022 degrees QTc Int : 452 ms Poor data quality, interpretation may be adversely affected Atrial fibrillation Abnormal ECG When compared with ECG of 24-OCT-2021 20:28, (unconfirmed) No significant change was found Confirmed by Tashi Martin ([id number]) on 10/25/2021 2:21:59 PM Referred By: REFERRED SELF Confirmed By:Tashi Martin
--- NOTE | 2021-10-25 15:53 | Hospitalist Progress Note ---
Date of Service October 25, 2021 Assessment & Plan (1) Syncope: Plan: Patient is a 56 yr old male who presents with syncope and rapid atrial fibrillation. Syncope Recurrent symptomatic Atrial Fibrillation RVR Had successful DC Cardioversion last admission Normal TSH -CXR:No acute chest disease. -CT head:No acute intracerebral pathology. There is no significant interval change. -CT Neck:No acute osseous pathology. Degenerative disc and degenerative joint disease. Metoprolol discontinued Started on sotalol 80 mg twice a day Monitor with daily EKG Appreciate cardiology input On Eliquis for anticoagulation IV Lopressor PRN HTN On amlodipine, losartan Also started on sotalol Monitor BP PVD On Eliquis Lower extremity edema Venous Doppler: No sonographic evidence of deep venous thrombosis. DVT Px: on Eliquis Code Status Full Code Admission and Anticipated Discharge Date Admission Date: October 25, 2021 Subjective Patient is seen and examined at bedside States having transient palpitations and dizziness earlier today Denies any chest pain, shortness of breath, nausea, abdominal pain Offers no other complaints Review of Systems Review of Systems: All systems reviewed & are unremarkable except as noted in Subjective Physical Exam Physical Exam: Physical Exam: Vitals signs as noted above General Appearance:Obese, no apparent distress Head: normocephalic, Atraumatic Eyes: normal inspection, EOMI Neck: supple, Trachea midline Respiratory/Chest: Normal breath sounds, CTA, No accessory muscle use Cardiovascular:, Tachycardia, irregularly irregular, no murmur Abdomen/GI:Soft, Non tender, Bowel sounds present Extremities/Musculoskeletal:normal inspection, Trace edema Neurologic/Psych:AAOX3, grossly no focal neurological deficits Skin: normal color, warm Results & Data Results & Data ([facility]) Vital Signs (Past 12 Hours) Vital Signs Temp Pulse Pulse Resp BP Pulse Ox 10/25/21 15:41 77 10/25/21 12:53 36.8 C 87 16 135/59 L 96 10/25/21 09:44 77 10/25/21 08:00 36.7 C 74 18 146/64 H 96 10/25/21 04:28 98 H 10/25/21 04:15 36.6 C 101 H 16 131/87 97 Laboratory Results Short CBC 10/24/21 10/25/21 Range/Units 20:37 05:46 WBC 6.84 4.46 L (4.8-10.8) K/uL Hgb 15.8 14.9 (14.0-18.0) g/dL Hct 46.9 44.5 (42-52) % Plt Count 188 167 (130-400) K/uL BMP 10/24/21 10/25/21 20:37 05:46 Sodium 137 137 Potassium 4.2 4.0 Chloride 104 109 H Carbon Dioxide 25 23 BUN 18 13 Creatinine 0.82 0.60 Glucose 85 92 Calcium 9.8 9.0 Liver Function 10/24/21 Range/Units 20:37 Total Bilirubin 0.6 (0.2-1.0) mg/dl AST 19 (13-39) U/L ALT 28 (7-52) U/L Alkaline Phosphatase 72 (34-104) U/L Albumin 4.7 (3.4-5.0) gm/dl Urine 10/24/21 Range/Units 20:37 Urine Color Yellow Urine Appearance Clear (Clear) Urine pH 5.5 (4.5-7.5) Ur Specific [place] 1.013 (1.000-1.030) Urine Protein Negative (Negative) Urine Glucose (UA) Negative (Negative) (1) Syncope Syncope type: unspecified Qualified Code(s): R55 - Syncope and collapse
[2021-10-26 07:37] LABS: Hematocrit (blood only) 45.7 % (42-52); Hemoglobin 15.3 g/dL (14.0-18.0); Mean Corpuscular Hemoglobin 30.2 pg (25-34); Mean Corpuscular Hgb Conc 33.5 g/dL (32-36); Mean Corpuscular Volume 90.1 fL (80-100); Mean Platelet Volume 11.2 fL (7.4-10.4); Platelet Count 177 K/uL (130-400); RDW Coefficient of Variation 13.9 % (11.5-14.5); RDW Standard Deviation 46.1 fL (36.4-46.3); Red Blood Count 5.07 M/uL (4.7-6.1); White Blood Count 5.01 K/uL (4.8-10.8)
[2021-10-26 08:09] LABS: BUN Creatinine Ratio 17.3 (10-20); Calcium 9.2 mg/dl (8.5-10.1); Creatinine Clr Calc Pharmacy 138.7 ml/min; Est GFR (African American) 113.5 ml/min
[2021-10-26] MEDS: amLODIPine BESYLATE 5 MG TAB PO SCH (08:20)
[2021-10-26] MEDS: APIXABAN 5 MG TABLET PO SCH ×2 (08:20→20:13)
[2021-10-26] MEDS: LOSARTAN POTASSIUM 25 MG TAB PO SCH (08:20)
[2021-10-26] MEDS: SOTALOL HCL 80 MG TAB PO SCH ×2 (08:21→20:13)
--- NOTE | 2021-10-26 10:23 | Cardiology Progress Note ---
Date of Service October 26, 2021 Assessment & Plan (1) Atrial fibrillation: (2) Syncope: (3) Hypertension: Plan: Patient with recurrent afib RVR with recurrent syncope/near syncope/lightheadedness associated with afib. No evidence of pauses or high degree AV block to correlate with syncope. He is symptomatic with afib RVR. Patient underwent cardioversion on 10/21 and was found to be back in afib on 10/24. Sotalol 80 mg BID initiated yesterday. He has had 3 doses of this morning. EKG with stable findings this morning. QT/QTc 402/454 ms He will require hospitalization for 3 days for antiarrhythmic load. Consider DCCV either or Sunday morning if he remains in afib. Continue Eliquis for anticoagulation. BP is controlled. Continue amlodipine and losartan. Case discussed with Dr. Freire. Will follow. Admission and Anticipated Discharge Date Admission Date: October 25, 2021 Subjective Patient resting comfortably in bed. He continues to report lightheadedness with positional changes and movement. He remains in afib this morning and HR's are primarily controlled at rest, but with mild exertion, rates increase and corre late with dizziness. BP is controlled. No syncope. no chest pain or SOB. No edema. Review of Systems Review of Systems: All systems reviewed & are unremarkable except as noted in HPI & below Physical Exam Constitutional: WD/WN, vitals as above well developed; no acute distress Eyes: PERRL, conjunctivae normal, anicteric sclerae Neck: trachea midline, no thyromegaly Respiratory: normal respiratory effort, lungs clear to auscultation Cardiovascular: Rate/Rhythm: + irregularly irregular Heart Sounds: normal S1 and normal S2; no murmur Palpation: normal PMI Vessels: no JVD Extremities: no edema Gastrointestinal (Abdomen): normal bowel sounds, soft, nontender, no hepatosplenomegaly Skin: no rashes, warm and dry Neurologic: PERRL, EOMI, accommodation nl, no face palsy, no dysarthria Psychiatric: A+Ox3, euthymic affect Results & Data ([facility]) Vital Signs (Past 12 Hours) Vital Signs Temp Pulse Pulse Resp BP BP Pulse Ox 10/26/21 07:21 36.4 C L 75 20 123/81 98 10/26/21 02:57 36.7 C 79 18 108/74 97 10/26/21 00:00 86 10/25/21 22:51 36.6 C 82 20 101/71 116/67 95 Laboratory Results Cardiac Enzymes 10/25/21 10/25/21 Range/Units 11:12 17:03 Troponin I High Sens 3.0 3.3 (0-20) pg/ml CBC 10/26/21 Range/Units 07:15 WBC 5.01 (4.8-10.8) K/uL RBC 5.07 (4.7-6.1) M/uL Hgb 15.3 (14.0-18.0) g/dL Hct 45.7 (42-52) % Plt Count 177 (130-400) K/uL Comprehensive Metabolic Panel 10/26/21 Range/Units 07:15 Sodium 139 (136-145) mmol/L Potassium 4.0 (3.5-5.1) mmol/L Chloride 107 (98-107) mmol/L Carbon Dioxide 28 (21-32) mmol/L BUN 14 (6-23) mg/dl Creatinine 0.81 (0.6-1.4) mg/dl Glucose 90 (70-99(Fasting)) mg/dl Calcium 9.2 (8.5-10.1) mg/dl Intake and Output 10/25/21 10/26/21 10/26/21 22:59 06:59 14:59 Intake Total 1200 / 1350 150 / 1350 Balance 1200 / 1350 150 / 1350 Intake: IV 1000 / 1000 Sodium Chloride 0.9% 1000ML 1, 1000 / 1000 000 ml @ 80 mls/hr IV .[id number] [facility] Rx#:[id number] Oral 200 / 350 150 / 350 Other: Weight 130.2 kg Diagnostic Findings Telemetry reviewed: Atrial fibrillation with rates ranging 70-90 bpm at rest, increasing to 110-130 with exertion. EKG this morning reviewed: Afib with controlled rates, QT/QTC 402/454 ms Medications Administered Current Inpatient Medications Acetaminophen (Acetaminophen 325 Mg Tab) 650 mg PO Q4H PRN PRN Reason: Pain or Fever Stop: 11/24/21 01:42 Amlodipine Besylate (Amlodipine Besylate 5 Mg Tab) 5 mg PO DAILY [facility] Stop: 11/24/21 08:59 Last Admin: 10/26/21 08:20 Dose: 5 mg Documented by: Apixaban (Apixaban 5 Mg Tablet) 5 mg PO BID [facility] Stop: 11/24/21 08:59 Last Admin: 10/26/21 08:20 Dose: 5 mg Documented by: Losartan Potassium (Losartan Potassium 25 Mg Tab) 25 mg PO QAM [facility] Stop: 11/24/21 08:59 Last Admin: 10/26/21 08:20 Dose: 25 mg Documented by: Metoprolol Tartrate (Metoprolol Tartrate 1 Mg/Ml Vial) 5 mg IV Q6 PRN PRN Reason: Tachycardia Stop: 11/24/21 01:42 Nitroglycerin (Nitroglycerin Sl 0.4 Mg/Tab Tab) 0.4 mg SL UD PRN PRN Reason: Chest Pain Stop: 11/24/21 01:42 Polyethylene Glycol (Polyethylene (Miralax) 17 Gm Pack) 17 gm PO DAILY PRN PRN Reason: Constipation Stop: 11/24/21 01:42 Sotalol HCl (Sotalol Hcl 80 Mg Tab) 80 mg PO BID [facility] Stop: 11/24/21 09:44 Last Admin: 10/26/21 08:21 Dose: 80 mg Documented by: (1) Atrial fibrillation Atrial fibrillation type: unspecified Qualified Code(s): I48.91 - Unspecified atrial fibrillation (2) Syncope Syncope type: unspecified Qualified Code(s): R55 - Syncope and collapse (3) Hypertension Hypertension type: primary hypertension Qualified Code(s): I10 - Essential (primary) hypertension
--- NOTE | 2021-10-26 12:09 | Electrocardiogram Report ---
Test Reason : Blood Pressure : / mmHG Vent. Rate : 077 BPM Atrial Rate : 277 BPM P-R Int : 000 ms QRS Dur : 102 ms QT Int : 402 ms P-R-T Axes : 000 012 026 degrees QTc Int : 454 ms Atrial fibrillation Abnormal ECG When compared with ECG of 25-OCT-2021 10:38, No significant change was found Confirmed by Tashi Martin ([id number]) on 10/26/2021 12:08:57 PM Referred By: REFERRED SELF Confirmed By:Tashi Martin
--- NOTE | 2021-10-26 15:41 | Hospitalist Progress Note ---
Date of Service October 26, 2021 Assessment & Plan (1) Syncope: Plan: Per Dr. Martínez's notes with addendum: Patient is a 56 yr old male who presents with syncope and rapid atrial fibrillation. Syncope Recurrent symptomatic Atrial Fibrillation RVR Had successful DC Cardioversion last admission Normal TSH -CXR:No acute chest disease. -CT head:No acute intracerebral pathology. There is no significant interval change. -CT Neck:No acute osseous pathology. Degenerative disc and degenerative joint disease. Metoprolol discontinued Started on sotalol 80 mg twice a day Monitor with daily EKG On Eliquis for anticoagulation IV Lopressor PRN 10/26/2021 Still in A. 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 DVT Px: on Eliquis Code Status Full Code plan of care discussed with patient in detail and at length all questions answered he is understanding, agreeable, comfortable with the plan of care Admission and Anticipated Discharge Date Admission Date: October 25, 2021 Subjective Follow-up for atrial fibrillation RVR, recurrent syncope Seen resting in bed, comfortable, not in distress Was lightheaded this morning Improved now, no active chest pain, shortness of breath, palpitations, dizziness No bleeding No other symptoms Review of Systems Review of Systems: all noted and negative except for above Physical Exam Physical Exam: General- oriented x 3, not in distress, speaks in sentences with no effort or accessory muscle use Head- atraumatic Eyes- PERRL, EOMI, anicteric ENT- oropharynx clear Neck- supple, no JVD, no adenopathy, no thyromegaly; carotids +2/2, no bruits appreciated Lungs- clear to auscultation bilaterally, no rales/wheezes Heart- normal rate, irregularly irregular rhythm; no murmur, no gallop, no rub appreciated Abdomen- normal bowel sounds, nondistended, soft, nontender, no masses or hepatosplenomegaly Extremities- no pretibial edema, no calf tenderness; peripheral pulses intact Neuro- alert, oriented x 3; CN 2-12 grossly intact; motor 5/5 bilaterally;sensation 100% on all extremities; no other gross focal neurologic deficits Skin- warm & dry Results & Data Results & Data ([facility]) Vital Signs (Past 12 Hours) Vital Signs Temp Pulse Resp BP Pulse Ox 10/26/21 11:36 36.6 C 80 18 111/71 97 10/26/21 07:21 36.4 C L 75 20 123/81 98 all noted and reviewed including below (1) Syncope Syncope type: unspecified Qualified Code(s): R55 - Syncope and collapse
[2021-10-27] MEDS: amLODIPine BESYLATE 5 MG TAB PO SCH (08:27)
[2021-10-27] MEDS: SOTALOL HCL 80 MG TAB PO SCH ×2 (08:27→19:50)
[2021-10-27] MEDS: LOSARTAN POTASSIUM 25 MG TAB PO SCH (08:27)
[2021-10-27] MEDS: APIXABAN 5 MG TABLET PO SCH ×2 (08:27→19:50)
--- NOTE | 2021-10-27 10:22 | Cardiology Progress Note ---
Date of Service October 27, 2021 Assessment & Plan (1) Atrial fibrillation: (2) Syncope: (3) Hypertension: Plan: Patient with recurrent afib RVR with recurrent syncope/near syncope/lightheadedness associated with afib. No evidence of pauses or high degree AV block to correlate with syncope. He is symptomatic with afib RVR. Patient underwent cardioversion on 10/21 and was found to be back in afib on 10/24. Sotalol 80 mg BID initiated 10/25. He has had 5 doses as of this morning, 6th dose will be tonight. NPO after midnight with planned DCCV tomorrow morning with Dr. Freire. Continue Eliquis for anticoagulation. BP is controlled. Continue amlodipine and losartan. Case discussed with Dr. Freire. Will follow. Admission and Anticipated Discharge Date Admission Date: October 25, 2021 Supervising Physician Co-Signing Physician Notes Patient seen and examined with Latisha Luna PA-C. Agree with findings and assessment as above. Patient presents with recurrent, symptomatic atrial fibrillation after undergoing DC cardioversion last week. We will proceed with rhythm control strategy. Sotalol started. The benefits, risks and alternatives were discussed with the patient he is in agreement. Daily EKGs. Continuous telemetry monitoring, follow and replete lites as necessary. We will plan for DC cardioversion in the a.m. N.p.o. after midnight Subjective Patient resting in room comfortably. Reports feeling "really good today". No dizziness or lightheadedness. HR's have been controlled overnight and this morning. Remains in afib. BP controlled. No syncope or near syncope. No chest pain or dyspnea. Review of Systems Review of Systems: All systems reviewed & are unremarkable except as noted in HPI & below Physical Exam Constitutional: WD/WN, vitals as above well developed; no acute distress Eyes: PERRL, conjunctivae normal, anicteric sclerae Neck: trachea midline, no thyromegaly Respiratory: normal respiratory effort, lungs clear to auscultation Cardiovascular: Rate/Rhythm: + irregularly irregular Heart Sounds: normal S1 and normal S2; no murmur Palpation: normal PMI Vessels: no JVD Extremities: no edema Gastrointestinal (Abdomen): normal bowel sounds, soft, nontender, no hepatosplenomegaly Skin: no rashes, warm and dry Neurologic: PERRL, EOMI, accommodation nl, no face palsy, no dysarthria Psychiatric: A+Ox3, euthymic affect Results & Data ([facility]) Vital Signs (Past 12 Hours) Vital Signs Temp Pulse Pulse Resp BP BP Pulse Ox 10/27/21 07:25 77 10/27/21 07:12 36.5 C 75 19 128/80 97 10/26/21 23:42 74 10/26/21 23:23 36.6 C 74 16 112/70 98 Laboratory Results Intake and Output 10/26/21 10/27/21 10/27/21 22:59 06:59 14:59 Intake Total 250 / 1525 200 / 1525 Balance 250 / 1525 200 / 1525 Intake: Oral 250 / 1525 200 / 1525 Other: Weight 130 kg Diagnostic Findings Telemetry reviewed - Afib with controlled rates. No bradycardia, pauses EKG reviewed from this morning - Afib with controlled rates QT/QTC 392/425 ms Medications Administered Current Inpatient Medications Acetaminophen (Acetaminophen 325 Mg Tab) 650 mg PO Q4H PRN PRN Reason: Pain or Fever Stop: 11/24/21 01:42 Amlodipine Besylate (Amlodipine Besylate 5 Mg Tab) 5 mg PO DAILY [facility] Stop: 11/24/21 08:59 Last Admin: 10/27/21 08:27 Dose: 5 mg Documented by: Apixaban (Apixaban 5 Mg Tablet) 5 mg PO BID [facility] Stop: 11/24/21 08:59 Last Admin: 10/27/21 08:27 Dose: 5 mg Documented by: Losartan Potassium (Losartan Potassium 25 Mg Tab) 25 mg PO QAM [facility] Stop: 11/24/21 08:59 Last Admin: 10/27/21 08:27 Dose: 25 mg Documented by: Metoprolol Tartrate (Metoprolol Tartrate 1 Mg/Ml Vial) 5 mg IV Q6 PRN PRN Reason: Tachycardia Stop: 11/24/21 01:42 Nitroglycerin (Nitroglycerin Sl 0.4 Mg/Tab Tab) 0.4 mg SL UD PRN PRN Reason: Chest Pain Stop: 11/24/21 01:42 Polyethylene Glycol (Polyethylene (Miralax) 17 Gm Pack) 17 gm PO DAILY PRN PRN Reason: Constipation Stop: 11/24/21 01:42 Sotalol HCl (Sotalol Hcl 80 Mg Tab) 80 mg PO BID [facility] Stop: 11/24/21 09:44 Last Admin: 10/27/21 08:27 Dose: 80 mg Documented by: (1) Atrial fibrillation Atrial fibrillation type: unspecified Qualified Code(s): I48.91 - Unspecified atrial fibrillation (2) Syncope Syncope type: unspecified Qualified Code(s): R55 - Syncope and collapse (3) Hypertension Hypertension type: primary hypertension Qualified Code(s): I10 - Essential (primary) hypertension
--- NOTE | 2021-10-27 20:00 | Hospitalist Progress Note ---
Date of Service October 27, 2021 Assessment & Plan (1) Syncope: Plan: Per Dr. Martínez's notes with addendum: Patient is a 56 yr old male who presents with syncope and rapid atrial fibrillation. Syncope Recurrent symptomatic Atrial Fibrillation RVR Had successful DC Cardioversion last admission Normal TSH -CXR:No acute chest disease. -CT head:No acute intracerebral pathology. There is no significant interval change. -CT Neck:No acute osseous pathology. Degenerative disc and degenerative joint disease. Metoprolol discontinued Started on sotalol 80 mg twice a day Monitor with daily EKG On Eliquis for anticoagulation IV Lopressor PRN 10/26/2021 Still in A. 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 DVT Px: on Eliquis Code Status Full Code plan of care discussed with patient in detail and at length all questions answered he is understanding, agreeable, comfortable with the plan of care Admission and Anticipated Discharge Date Admission Date: October 25, 2021 Results & Data Results & Data ([facility]) Vital Signs (Past 12 Hours) Vital Signs Temp Pulse Pulse Resp BP BP Pulse Ox 10/27/21 19:00 36.6 C 92 H 20 117/80 96 10/27/21 16:36 84 10/27/21 15:40 36.5 C 91 H 20 124/85 98 10/27/21 11:29 36.7 C 86 20 124/79 97 (1) Syncope Syncope type: unspecified Qualified Code(s): R55 - Syncope and collapse
--- NOTE | 2021-10-28 07:33 | Electrocardiogram Report ---
Test Reason : Blood Pressure : / mmHG Vent. Rate : 071 BPM Atrial Rate : 085 BPM P-R Int : 000 ms QRS Dur : 102 ms QT Int : 392 ms P-R-T Axes : 000 006 014 degrees QTc Int : 425 ms Atrial fibrillation Abnormal ECG When compared with ECG of 26-OCT-2021 05:27, No significant change was found Confirmed by Sabino Stein ([id number]) on 10/28/2021 7:32:54 AM Referred By: REFERRED SELF Confirmed By:Sabino Stein
[2021-10-28] MEDS ORDERED: fentaNYL citrate 100 MCG/2 ML VIAL ONE ×2 (08:52→09:14)
[2021-10-28] MEDS ORDERED: MIDAZOLAM HCL 5 MG/ML 1 ML VIAL ONE (08:52)
--- NOTE | 2021-10-28 08:54 | Pre Anesthesia Assessment ---
Date of Service October 28, 2021 Pre Sedation Assessment Vital Signs Temp Pulse Pulse Resp BP BP Pulse Ox 10/28/21 07:51 36.7 C 78 20 145/89 H 99 10/28/21 07:06 73 10/28/21 03:51 36.8 C 70 18 103/69 97 10/27/21 23:34 36.5 C 72 16 101/68 97 10/27/21 23:05 72 10/27/21 19:00 36.6 C 92 H 20 117/80 96 10/27/21 16:36 84 10/27/21 15:40 36.5 C 91 H 20 124/85 98 10/27/21 11:29 36.7 C 86 20 124/79 97 Pre-Sedation Airway Assessment Smoking Status: Never smoker Notes The planned sedation has been discussed with the patient. Informed Consent was obtained. I have identified the patient, determined the appropriateness of sedation and have assessed the patient immediately prior to the procedure. All medicine(s) and interventions are by my order.
--- NOTE | 2021-10-28 09:20 | Post Anesthesia Assessment ---
Date of Service October 28, 2021 Post Sedation Assessment Vital Signs Temp Pulse Pulse Resp BP BP Pulse Ox 10/28/21 08:53 84 18 137/97 99 10/28/21 07:51 36.7 C 78 20 145/89 H 99 10/28/21 07:06 73 10/28/21 03:51 36.8 C 70 18 103/69 97 10/27/21 23:34 36.5 C 72 16 101/68 97 10/27/21 23:05 72 10/27/21 19:00 36.6 C 92 H 20 117/80 96 10/27/21 16:36 84 10/27/21 15:40 36.5 C 91 H 20 124/85 98 10/27/21 11:29 36.7 C 86 20 124/79 97 Discharge Sedation Level of Care: Fast Track Phase II Post Sedation Plan On clinical assessment, the patient appears to have tolerated the sedation without complications. Patient is recovering as anticipated. Patient will continue to be monitored by nursing and may be discharged when sedation discharge criteria are met per below protocol. Upon Completions of procedure up to 15 minutes continue every 5 minute vital signs and the P.A.R. score; then discharge to a Phase I or Fast Track to Phase II per the following guidelines: * Discharge Patient to appropriate Phase II area if PAR is 8 or greater or return to pre- procedure baseline. The post - procedure orders will be as directed. * If PAR score is less than 8 or not return to pre-procedure baseline then patient will follow Phase I monitoring till PAR is reached for Phase II. The Phase I may be done in procedure room or may call to secure a Phase I area. * If naloxone or flumazenil are used for reversal, hold in Phase I for continued monitoring from when last reversal dose was given for a minimum of 60 minutes or longer pending the nurse and/or physician discretion of patient condition before discharge to Phase II. Please call the Sedation Physician to re-evaluate and complete post-note for discharge to Phase II area. Do NOT discharge from procedure sedation or Phase 1 until post- sedation evaluation note is complete by procedure /sedation MD Sedation Discharge Instructions to be given to the patient at discharge to home.
--- NOTE | 2021-10-28 09:22 | Operative Report ---
Post Operative Report Pre & Post Diagnosis Operation Date: 10/28/21 09:00 <No data on this case meets the specified criteria> I identified the patient and participated in the time-out.: Yes Procedure Operation Date: 10/28/21 09:00 Actual Procedures p Cardioversion - Ronal Freire DO Informed consent obtained. Patient prepped. Adequate moderate sedation was achieved with a total of Versed 4 mg and fentanyl 125 mcg. 200 J of synchronized energy delivered with successful cardioversion to normal sinus rhythm. Patient tolerated procedure well. Recover per protocol. Start time: 909 Stop time: 917 Plan: Return to telemetry. Discharge to home later today. Surgeon Ronal Freire DO [employer] Coleen Estimated Blood Loss 0 Findings Consistent with Post-Op Diagnosis Specimens None Description of Procedure As above I attest to the content of the Intraoperative Record and any orders documented therein. Any exceptions are noted below.
--- NOTE | 2021-10-28 09:26 | Cardiology Progress Note ---
Date of Service October 28, 2021 Assessment & Plan (1) Atrial fibrillation: (2) Syncope: (3) Hypertension: Plan: Patient with recurrent afib RVR with recurrent syncope/near syncope/lightheadedness associated with afib. No evidence of pauses or high degree AV block to correlate with syncope. He is symptomatic with afib RVR. Patient underwent cardioversion on 10/21 and was found to be back in afib on 10/24. Sotalol 80 mg BID initiated 10/25. Patient tolerated 6 doses of sotalol without significant to QT prolongation or ventricular arrhythmias. Underwent DC cardioversion with successful cardioversion to normal sinus rhythm. He will be recovered per protocol. Okay to discharge to home today. Patient already scheduled to be seen in follow-up on Sunday Admission and Anticipated Discharge Date Admission Date: October 25, 2021 Subjective Patient seen and examined, chart reviewed. States he felt well overnight. No further lightheadedness. Denies chest pain, shortness of breath or palpitations. Telemetry reviewed: Atrial fibrillation rate controlled Review of Systems Review of Systems: All systems reviewed & are unremarkable except as noted in HPI & below Physical Exam Physical Exam: General: Awake, alert and oriented x 3. No acute distress. HEENT: Normocephalic, atraumatic. Pupils equal, round and reactive to light and accommodation. Extraocular muscles are intact. Anicteric sclera. Moist mucous membranes. Neck: No JVD. No bruit. Cardiovascular: irregularly irregular, unable to appreciate murmur, rub or gallop. Pulmonary: Clear to auscultation bilaterally. No rales, rhonchi, or wheezing. Abdomen: Bowel sounds x 4, soft. No rebound, guarding or tenderness. No organomegaly. Extremities: No clubbing, cyanosis or edema. +2 pedal pulses bilaterally. Skin: Warm and dry. Results & Data ([facility]) Vital Signs (Past 12 Hours) Vital Signs Temp Pulse Pulse Resp BP BP Pulse Ox 10/28/21 09:20 66 16 126/73 100 10/28/21 09:15 90 16 111/76 100 10/28/21 09:10 87 16 130/96 100 10/28/21 08:53 84 18 137/97 99 10/28/21 07:51 36.7 C 78 20 145/89 H 99 06/24/22 07:06 73 10/28/21 03:51 36.8 C 70 18 103/69 97 10/27/21 23:34 36.5 C 72 16 101/68 97 10/27/21 23:05 72 (1) Atrial fibrillation Atrial fibrillation type: unspecified Qualified Code(s): I48.91 - Unspecified atrial fibrillation (2) Syncope Syncope type: unspecified Qualified Code(s): R55 - Syncope and collapse (3) Hypertension Hypertension type: primary hypertension Qualified Code(s): I10 - Essential (primary) hypertension
[2021-10-28] MEDS: SOTALOL HCL 80 MG TAB PO SCH ×2 (09:57→09:58)
[2021-10-28] MEDS: LOSARTAN POTASSIUM 25 MG TAB PO SCH (09:59)
[2021-10-28] MEDS: APIXABAN 5 MG TABLET PO SCH (09:59)
[2021-10-28] MEDS: amLODIPine BESYLATE 5 MG TAB PO SCH (09:59)
--- NOTE | 2021-10-28 12:46 | Electrocardiogram Report ---
Test Reason : Blood Pressure : / mmHG Vent. Rate : 086 BPM Atrial Rate : 312 BPM P-R Int : 000 ms QRS Dur : 100 ms QT Int : 372 ms P-R-T Axes : 000 001 037 degrees QTc Int : 445 ms Atrial fibrillation Abnormal ECG No previous ECGs available Confirmed by Tashi Martin ([id number]) on 10/28/2021 12:46:18 PM Referred By: REFERRED SELF Confirmed By:Tashi Martin
--- NOTE | 2021-10-28 12:51 | Electrocardiogram Report ---
Test Reason : Blood Pressure : / mmHG Vent. Rate : 064 BPM Atrial Rate : 064 BPM P-R Int : 198 ms QRS Dur : 104 ms QT Int : 404 ms P-R-T Axes : 052 -04 026 degrees QTc Int : 416 ms Normal sinus rhythm Normal ECG When compared with ECG of 27-OCT-2021 05:47, Sinus rhythm has replaced Atrial fibrillation Confirmed by Tashi Martin ([id number]) on 10/28/2021 12:51:12 PM Referred By: REFERRED SELF Confirmed By:Tashi Martin
--- NOTE | 2021-10-28 20:35 | Hospitalist Progress Note ---
Date of Service October 28, 2021 delayed entry date of service noted above Assessment & Plan (1) Syncope: Plan: Per Dr. Martínez's notes with addendum: Patient is a 56 yr old male who presents with syncope and rapid atrial fibrillation. Syncope Recurrent symptomatic Atrial Fibrillation RVR Had successful DC Cardioversion last admission Normal TSH -CXR:No acute chest disease. -CT head:No acute intracerebral pathology. There is no significant interval change. -CT Neck:No acute osseous pathology. Degenerative disc and degenerative joint disease. Metoprolol discontinued Started on sotalol 80 mg twice a day Monitor with daily EKG On Eliquis for anticoagulation IV Lopressor PRN 10/28/2021 s/p DC cardioversion with successful cardioversion to normal sinus rhythm. Continue sotalol 80 mg twice a day Continue Eliquis ff up wit Emergency Medicine HTN On amlodipine, losartan Also started on sotalol Monitor BP PVD On Eliquis Lower extremity edema Venous Doppler: No sonographic evidence of deep venous thrombosis. DVT Px: on Eliquis Code Status Full Code plan of care discussed with patient in detail and at length all questions answered he is understanding, agreeable, comfortable with the plan of care Admission and Anticipated Discharge Date Admission Date: October 25, 2021 Subjective ff up for syncope, etc seen resting in bed, comfortable in good spirits states he feels much better overall no chest pain, dyspnea, palpitations, dizziness no other symptoms Review of Systems Review of Systems: all noted and negative except for above Physical Exam 2 Physical Exam: General- oriented x 3, not in distress, speaks in sentences with no effort or accessory muscle use Eyes- anicteric Neck- no JVD Lungs- clear breath sounds bilaterally, no rales/wheezes Heart- normal rate, regular rhythm; no murmurs Abdomen- normal bowel sounds, nondistended, soft, nontender Extremities- no pretibial edema, no calf tenderness Neuro- alert, oriented x 3; no gross focal neurologic deficits Skin- warm & dry Results & Data Results & Data ([facility]) Vital Signs (Past 12 Hours) Vital Signs Temp Pulse Pulse Pulse Resp BP BP 10/28/21 16:14 36.8 C 58 L 84 18 126/80 123/86 10/28/21 16:06 36.8 C 58 L 18 126/80 10/28/21 14:47 63 10/28/21 11:41 36.4 C L 64 18 124/83 10/28/21 11:00 36.6 C 70 14 123/86 10/28/21 10:59 65 10/28/21 09:55 36.8 C 67 18 126/79 10/28/21 09:40 65 16 107/80 10/28/21 09:25 70 16 152/84 H 10/28/21 09:20 66 16 126/73 10/28/21 09:15 90 16 111/76 10/28/21 09:10 87 16 130/96 10/28/21 08:53 84 18 137/97 Pulse Ox 10/28/21 16:14 97 10/28/21 16:06 97 10/28/21 14:47 10/28/21 11:41 97 10/28/21 11:00 96 10/28/21 10:59 10/28/21 09:55 95 10/28/21 09:40 96 10/28/21 09:25 96 10/28/21 09:20 100 10/28/21 09:15 100 10/28/21 09:10 100 10/28/21 08:53 99 (1) Syncope Syncope type: unspecified Qualified Code(s): R55 - Syncope and collapse
--- NOTE | 2021-11-08 17:21 | Discharge Summary ---
Date of Service November 08, 2021 Admission HPI Per Admitting Provider CHIEF COMPLAINT: Syncope, atrial fibrillation. HISTORY OF PRESENT ILLNESS: This is a 56-year-old male with past medical history significant for recent diagnosis of atrial fibrillation, and peripheral artery disease, hypertension, sigmoid diverticulosis, chronic venous stasis dermatitis of the lower extremities, presents with syncope. The patient says he was helping a friend with camping when suddenly he passed out for a brief moment and when he woke up, confused or brief moment. He did not hit his head. He was able to ambulate afterwards. Whole day he was feeling lightheaded. Denies any chest pain. During the episode, he was short of breath . Currently, there is no shortness of breath, no cough, no fever, no chills, no earache, no runny nose, no sore throat. No nausea, no vomiting, no abdominal pain. Normal bowel and bladder movements. Appetite is okay. He has swelling in the lower extremity on and off. Today, he is having swelling in the right lower extremity. After a dose of IV Lopressor in the ER, his heart rate is in the 80s and 90s. ALLERGIES: No known drug allergies. PAST MEDICAL HISTORY: As mentioned above. PAST SURGICAL HISTORY: Colonoscopy, knee arthroscopy, varicose vein stripping and ligation, appendectomy. MEDICATIONS: The patient is on amlodipine 5 mg p.o. daily, Eliquis 5 mg p.o. b.i.d., losartan 25 mg p.o. a.m., metoprolol tartrate 25 mg p.o. b.i.d. FAMILY HISTORY: Significant for no family history on file. SOCIAL HISTORY: . No smoking. Alcohol, occasional. No drug use. REVIEW OF SYSTEMS: As per HPI. Rest of review of systems is negative. Admission Exam Per Admitting Provider PHYSICAL EXAMINATION: GENERAL: The patient is obese, not in acute distress. VITAL SIGNS: Temperature 36.3, pulse 85, respiratory rate 19, blood pressure 133/94, oxygen 97% on room air. HEENT: Pupils are equal, round, and reactive to light. Oral mucosa moist. NECK: No JVD. No neck masses. CARDIOVASCULAR: S1 and S2 heard. Regular rate and rhythm. No murmur, no gallop. RESPIRATORY SYSTEM: Normal AP diameter. No accessory muscle use. No wheezing, no crackles. ABDOMEN: Soft. Bowel sounds are present, nontender, no distention. CENTRAL NERVOUS SYSTEM: Cranial nerves II-XII grossly intact, nonfocal. EXTREMITIES: Lower extremities, chronic skin changes seen. Edema present, right greater than left. Principal Diagnosis RECURRENT SYNCOPE ATRIAL FIBRILLATION Discharge Exam General- oriented x 3, not in distress, speaks in sentences with no effort or accessory muscle use Eyes- anicteric Neck- no JVD Lungs- clear breath sounds bilaterally, no rales/wheezes Heart- normal rate, regular rhythm; no murmurs Abdomen- normal bowel sounds, nondistended, soft, nontender Extremities- no pretibial edema, no calf tenderness Neuro- alert, oriented x 3; no gross focal neurologic deficits Skin- warm & dry Discharge Data Allergies Allergy/AdvReac Type Severity Reaction Status Date / Time No Known Allergies Allergy Unverified 10/24/21 23:43 Consultations 10/24/21 23:19 ED Decision to Admit Stat 10/25/21 08:00 Consult Cardiology Routine Procedures Performed Operation Date: 10/28/21 09:00 Actual Procedures p Cardioversion - Ronal Freire DO Ordered Studies 10/24/21 21:15 CT cervical spine wo con Urgent CT head/brain wo con Urgent 10/25/21 01:43 US venous doppler LE RT Routine Hospital Course (1) Syncope: Per Dr. Martínez's notes with addendum: Patient is a 56 yr old male who presents with syncope and rapid atrial fibrillation. Syncope Recurrent symptomatic Atrial Fibrillation RVR Had successful DC Cardioversion last admission Normal TSH -CXR:No acute chest disease. -CT head:No acute intracerebral pathology. There is no significant interval change. -CT Neck:No acute osseous pathology. Degenerative disc and degenerative joint disease. Metoprolol discontinued Started on sotalol 80 mg twice a day Monitor with daily EKG On Eliquis for anticoagulation IV Lopressor PRN 10/28/2021 s/p DC cardioversion with successful cardioversion to normal sinus rhythm. 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 DVT Px: on Eliquis Code Status Full Code plan of care discussed with patient in detail and at length all questions answered he is understanding, agreeable, comfortable with the plan of care Total Time Total Time Spent Total Time Spent (In Minutes): >30 minutes Discharge Plan Discharge Items Patient Disposition: Home - Self-Care Reason For Visit: SYNCOPE Discharge Diagnosis: RECURRENT SYNCOPE SECONDARY TO ATRIAL FIBRILLATION Activity: Resume your previous activity Activity Comment: GRADUALLY TOLERATED Driving/Machine Use: NO DRIVING UNTIL RE-EVALUATED AND ALLOWED BY PRIMARY CARE PHYSICIAN Non-emergency contact: Primary Care Provider Call non-emergency contact if: you have any medication questions, your symptoms worsen, your pain is not controlled, your pain is worsening, your pain is unusual for you, your pain is concerning for you and you have a fever Follow-up/Referrals: Latisha Luna PA-C [Physician Production Coordinator] - (Date & Time 10/31/2021 12:00 PM Provider Latisha Luna PA-C Department Cardiology, [facility] ) Maxwell Villar MD [Primary Care Provider] - (Date & Time 11/04/2021 11:20 AM Provider Maxwell Villar MD Department [facility] ) Diet: Heart Healthy Add Attending Provider Instructions: PLEASE REFER TO YOUR NEW MEDICATION LIST AND FOLLOW INSTRUCTIONS CAREFULLY. YOUR NEW MEDICATIONS INCLUDE: SOTALOL- for atrial fibrillation PLEASE CALL YOUR PRIMARY CARE PHYSICIAN OR RETURN TO THE ER IF WITH WORSENING OF SYMPTOMS, INCLUDING DIZZINESS, PALPITATIONS, CHEST PAIN, SHORTNESS OF BREATH. FOLLOW UP WITH PRIMARY CARE PHYSICIAN AND SODA WORKER OUTLINED ABOVE. Pending Studies at Discharge: No Stand-Alone Forms: My [facility], Work/School Release, Smoking Cessation Medications and DC Order Prescriptions: New sotalol 80 mg Tablet 80 mg PO BID 30 Days Qty: 60 RF: 2 Continued Eliquis 5 mg tablet 5 mg PO BID RF: 0 amlodipine [Norvasc] 5 mg Tablet 5 mg PO DAILY Qty: 30 RF: 1 losartan 25 mg Tablet 25 mg PO QAM Qty: 30 RF: 1 Discontinued metoprolol tartrate 25 mg tablet 25 mg PO BID RF: 0 Discharge Orders: Discharge Order (Routine); Ordered 10/28/21 Ordered By: Zaki López Admission Data Admit Date/Time: 10/25/21 00:38 Attending Provider: Panlilio,Zaki A. Admit Provider: Amrit Fried Primary Care Provider: Maxwell Villar Other Providers: Amrit Fried ; Ronal Freire ; Sonny Mendez ; Bry Enriquez ; Jero Hernandez ; Martin Silver ; Sonu Ying ; Latisha Luna ; Ashley Diamond ; Briseyda Acharya ; Ruy Arzate ; Eder Michelle. Other Interventions: Discharge Summary Assessment (RN) Last Done: 10/28/21 16:14
== END 2021-10-28 16:41 | disposition home or self-care (01) | DRG 310 ==
LOC: ED 19:56 → 2S 10-25 00:38 → SUATTDRO 10-25 00:38 → 2S 10-25 01:43